=== PATIENT | female | born 1940 | race Caucasian/White ===

== ENCOUNTER → 2016-09-07 | Outpatient (CLI) | payer OTHER | LOC: FIMAGING 15:00 | PROVIDERS: ATTEND Physician Assistant | DX: R10.9 Unspecified abdominal pain (principal); R14.0 Abdominal distension (gaseous) ==

== ENCOUNTER → 2016-10-31 | Outpatient (CLI) | payer OTHER | LOC: FIMAGING 18:42 | PROVIDERS: ATTEND Physician Assistant Surgical | DX: M43.12 Spondylolisthesis, cervical region (principal); M48.02 Spinal stenosis, cervical region; M40.202 Unspecified kyphosis, cervical region; Z98.1 Arthrodesis status ==

== ENCOUNTER 2016-12-19 11:02 | Inpatient (IN) | payer OTHER ==
[2016-12-19] MEDS ORDERED: BUPIVACAINE/EPI 0.25% 30 ML SDV ONE (12:00)
[2016-12-19] MEDS ORDERED: THROMBIN (BOVINE) 20,000 UNIT VIAL TP ONE ×2 (12:00→12:06)
[2016-12-19] MEDS ORDERED: BUPIVACAINE 0.25% 30 ML SDV ONE (12:00)
[2016-12-19] MEDS ORDERED: BACITRACIN 50,000 UNITS/10 ML SYR IRR ONE (12:01)
[2016-12-19] MEDS ORDERED: LIDOCAINE 1% 2 ML INJ ONE (12:27)
[2016-12-19] MEDS ORDERED: ceFAZolin 2 GM/DEXTROSE 100 ML IV ONE (12:30)
[2016-12-19] MEDS ORDERED: CHLORHEXIDINE GLUC HIBICLENS 118 ML BTL TP ONE (12:30)
[2016-12-19 13:29] LABS: INR 0.98 (0.83-1.16); PROTIME(PATIENT) 12.9 SEC (12.0-15.0)
[2016-12-19] MEDS ORDERED: PROPOFOL/EMULSION 500 MG/50 ML BOTTLE IV ONE ×3 (13:36→16:52)
[2016-12-19] MEDS ORDERED: fentaNYL 100 MCG/2 ML INJ ONE (13:36)
[2016-12-19] MEDS ORDERED: REMIFENTANIL HCL 1 MG VIAL ONE (13:36)
[2016-12-19] MEDS ORDERED: ROCURONIUM 50 MG/5 ML VIAL ONE (13:39)
[2016-12-19] MEDS ORDERED: DEXAMETHASONE 4 MG/ML VIAL ONE (13:39)
[2016-12-19] MEDS ORDERED: LIDOCAINE 2% 5 ML SDV ONE (13:39)
[2016-12-19] MEDS ORDERED: VANCOMYCIN 500 MG in D5W 100 ML IV ONE (14:00)
[2016-12-19] MEDS ORDERED: HYDROmorphONE/DILAUDID 2 MG/ML INJ ONE (16:14)
[2016-12-19] MEDS ORDERED: FAMOTIDINE 20 MG TAB PO PRN (17:13)
[2016-12-19] MEDS ORDERED: HYDROmorphONE/DILAUDID 1 MG/ML SYR IVP PRN (17:14)
[2016-12-19] MEDS ORDERED: ACETAMINOPHEN 325 MG TAB PO PRN (17:14)
[2016-12-19] MEDS ORDERED: ONDANSETRON DISINTEGRATING 4 MG TAB PO PRN (17:14)
[2016-12-19] MEDS ORDERED: LACTULOSE 20 GM/30 ML UDCUP PO PRN (17:14)
[2016-12-19] MEDS ORDERED: diphenhydrAMINE 25 MG CAP PO PRN (17:14)
[2016-12-19] MEDS ORDERED: ONDANSETRON 4 MG/2 ML VIAL IVP PRN (17:14)
[2016-12-19] MEDS ORDERED: PROMETHAZINE HCL 25 MG/ML INJ IVP PRN (17:14)
[2016-12-19] MEDS ORDERED: POLYETHYLENE GLYCOL 3350 17 GM PKT PO PRN (17:14)
[2016-12-19] MEDS ORDERED: MAG HYDROX/AL HYDROX/SIMETH 30 ML UDCUP PO PRN (17:14)
[2016-12-19] MEDS ORDERED: MAGNESIUM HYDROXIDE 30 ML UDCUP PO PRN (17:14)
[2016-12-19] MEDS ORDERED: BISACODYL 10 MG SUPP PR PRN (17:14)
[2016-12-19] MEDS ORDERED: VANCOMYCIN 1.5 GM in D5W 250 ML IV SCH (17:30)
[2016-12-19] MEDS ORDERED: ESMOLOL HCL 100 MG/10 ML VIAL IV ONE (17:41)
[2016-12-19] MEDS ORDERED: ONDANSETRON 4 MG/2 ML VIAL ONE (17:47)
--- NOTE | 2016-12-19 18:54 | POSTOPPROG ---
Post Op Note Date of Operation: 12/19/16 Surgeon: Ayad Zimmerman Meter Maintenance Person: Lex Dale PA-C Anesthesiologist: Silver Anesthesia: GET(General Endotracheal) Pre-op Diagnosis: cervical stenosis, kyphosis Post-op Diagnosis: same Indication: kyphosis Procedure: C0-T3 posterior fusion with C3 laminectomy Findings: Please see Dr. 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
[2016-12-19] MEDS: HYDROCODONE/APAP 10/325 TAB PO PRN (20:31)
[2016-12-19] MEDS: NS W/ 20 KCl/L 1,000 ML IV SCH (20:32)
[2016-12-19] MEDS: SENNOSIDES/DOCUSATE SODIUM TAB PO SCH (20:48)
[2016-12-19] MEDS: METHOCARBAMOL 750 MG TAB PO PRN (21:32)
[2016-12-19] MEDS: VERAPAMIL ER 120 MG TAB PO SCH (21:32)
[2016-12-19] MEDS: FUROSEMIDE 20 MG TAB PO SCH (21:32)
[2016-12-20] MEDS ORDERED: VANCOMYCIN 750 MG in D5W 150 ML IV ONE (02:00)
[2016-12-20] MEDS: METHOCARBAMOL 750 MG TAB PO PRN ×2 (03:38→19:21)
[2016-12-20] MEDS: HYDROCODONE/APAP 10/325 TAB PO PRN ×5 (03:39→21:35)
[2016-12-20 04:56] LABS: % IMMATURE GRANULYOCYTES 0.4 % (0.0-1.1); ABSOLUTE IMMATURE GRANULOCYTES 0.05 10^3/uL (0.00-0.10); ADD DIFF? NO; ADD MORPH? NO; ADD SCAN? NO; ATYPICAL LYMPHOCYTE FLAG 0 (0-99); FRAGMENT RBC FLAG 0 (0-99); HEMATOCRIT 41.5 % (38.0-47.0); HEMOGLOBIN 13.1 g/dL (12.6-16.3); LEFT SHIFT FLG 0 (0-99); LIPEMIA HEMOLYSIS FLAG 80 (0-99); MEAN CELL HEMOGLOBIN CONCENTR. 31.6 g/dL (32.4-36.7); MEAN CELL VOLUME 95.2 fL (81.5-99.8); MEAN PLATELET VOLUME 10.2 fL (8.7-11.7); PLATELET CLUMPS FLAG 0 (0-99); PLATELET COUNT 157 10^3/uL (150-400); RED BLOOD CELL COUNT 4.36 10^6/uL (4.18-5.33); RED CELL DISTRIBUTION WIDTH 13.7 % (11.5-15.2)
[2016-12-20 05:05] LABS: ANION GAP 5 mEq/L (8-16); CALCIUM 8.5 mg/dL (8.5-10.4); CARBON DIOXIDE 25 mEq/l (22-31); CHLORIDE 107 mEq/L (97-110); CREATININE 0.7 mg/dL (0.6-1.0); GLOMERULAR FILTRATION RATE > 60; GLUCOSE 176 mg/dL (70-100); POTASSIUM 3.6 mEq/L (3.5-5.2); SODIUM 137 mEq/L (134-144)
--- NOTE | 2016-12-20 05:25 | GOP ---
[f rep st] OPERATIVE REPORT DATE OF OPERATION: 12/19/2016 SURGEON: Ayad Zimmerman MD DIRECTOR MACHINE: Chico Stevens MD. SECOND ASSIST: MARLO Adan. COMPLICATIONS: A small dural tear was achieved in the midline at the C4/5 level and was repaired primarily. ANESTHESIA: General. PREOPERATIVE DIAGNOSIS: 1. 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 2. History of prior fusion, C4-C5-C6 and prior laminectomy. 3. Severe spinal stenosis, C3-C4, with progressive myelopathy and neuropathy. POSTOPERATIVE DIAGNOSIS: 1. 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 2. History of prior fusion, C4-C5-C6. 3. Severe spinal stenosis, C3-C4, with progressive myelopathy and neuropathy. PROCEDURE PERFORMED: 1. Posterior arthrodesis with approach to the occiput, C1, C2, C3, C4, C5, C6, C7, T1, T2, T3. 2. Posterolateral fusion with bilateral screw placement into the bilateral occipital condyles with 20 mm bilateral condyle screws, 22 mm left C2 pedicle screw, and right-sided 26 mm C2 translaminar screw. 3. Bilateral C7, T1, T2, T3 pedicle screw placement from the [employer] system. 4. Posterolateral fusion, bilaterally, between the occiput and T3, with morselized autograft and allograft. 5. Exploration of prior cervical hardware, C4-C5-C6, with bilateral nancy removal. 6. Use of intraoperative 3D Stealth navigation. 7. Use of intraoperative fluoroscopy, less than 1 hour of physician time. 8. Use neuromonitoring. FINDINGS: per imaging ESTIMATED BLOOD LOSS: 40 mL. INDICATIONS: The patient is a 76-year-old woman, who has undergone a prior anterior and posterior cervical fusion and decompression several years ago. She presented to my office with progressive neck pain, and had evidence of myelopathy and radiculopathy with evidence of spinal stenosis at C3-C4, as well as progressive chin on chest deformity. After discussion of the risks, benefits , and treatment alternatives, we decided to proceed forth with surgical intervention, as described above. The original plan was to proceed forth with a pedicle subtraction osteotomy with wedge osteotomy at C7; however, the patient did not have a fixed deformity when she went to sleep, and we were actually able to place her in a more neutral position. Given her age and length of surgery, I opted not to complete a wedge osteotomy. Also, the original plan was for placement of an occipital plate; however, the patient's occiput bone thickness laterally was only 1-2 mm thick and therefore, I opted to place bilateral condylar screws instead for greater stability. She presents now for this surgical intervention. DESCRIPTION OF PROCEDURE: Patient was brought to the operating theater and underwent general endotracheal anesthesia without complication. She had Venodynes, JOYCELYN hose, and the appropriate lines placed by Anesthesia. The patient's head was then placed in an almost neutral position when she was asleep , and her head was then placed in a Robert head device. Using spinal precautions, she was flipped prone onto the standard table, at which point, she was affixed to the table in a neutral position. The prior occipital-cervical incision was identified and prepped and draped in the usual sterile surgical fashion. A time-out was completed per protocol, and the patient received antibiotics within 1 hour of incision. The incision in the midline was infiltrated with Marcaine with epinephrine. The incision was taken down with the scalpel blade. Used the monopolar, the incision was then taken down the midline, exposing the occiput, as well as the bilateral occipital condyles, the ring of C1, the ring of C2, ring of C3, and during the exposure in the midline, we got a small dural tear at the C4 level which was closed primarily with 4-0 Nurolon sutures immediately. We then continued out with the dissection to the lateral masses at the prior screws on the right side at C4-C5-C6 and the left-sided of C5-C6, and continued down to C7 , T1, T2, T3. Deep retractors were placed to maintain our exposure. At this point, we attached the 3D Stealth navigation clamp and completed a 3D Stealth navigation spin. Using 3D Stealth navigation, we placed the pilot plant supervisor holes for the bilateral pedicle screws into C7, T1, T2, and T3. All holes were manually palpated with no evidence of any cortical breaches. We then tapped and placed 28 mm screw on the left at C7, 22 mm screw on the right at C7, a 30 mm screw on the left at T1, a 26 mm screw on the right at T1, a 34 mm screw on the left at T2, a 30 mm screw on the right at T2, a 34 mm screw on the left at T3, and a 34 mm screw on the right at T3. We then used the navigation system to drill, tap, and place a left-sided C2 pars-pedicle 22m mm screw. I was not able to place a right-sided C2 pars-pedicle screw because of the vertebral artery and therefore placed a right to left 26 mm C2 translaminar screw. I could now place the C1 screw safely and planned for placement of bilateral condylar screws because the patient's occiput was so thin. We dissected out the condyles bilaterally by using the navigation system. We drilled and tapped, and placed 28 mm screws bilaterally into the occipital condyles. Another 3D Stealth navigation spin demonstrated that the right condylar screw was 2 mm slightly towards the hypoglossal canal, and we therefore backed it out approximately 2 mm. After we placed all of our screws, we completed a dissection of the posterior ring of C3 using the forward-angle curette, at which point, we removed the posterior ring of C3 and completed C3 laminectomy with the Kerrison punches. At this point, we decorticated the bone bilaterally between the occiput, C1, C2 , C3, C4, C5, C6, C7, T1, T2, T3. Two rods were placed into the heads of the screws between the occipital condyles and T3, and secured down with cap screws, which were then tightened per the hunting and fishing guide's setting. We placed morselized autograft and allograft bilaterally between the occipital condyles and T3 for the posterolateral fusion. A drain was left in the subfascial space and the wound then closed in multiple layers using Vicryl sutures in the deep layers and a running nylon stitch for the skin. The patient's wounds were dressed sterilely. At this point, the patient was flipped supine onto the transfer cart, and was still asleep at the time of this dictation. There were no complications and no noted changes on neuromonitoring throughout the procedure. /[id number]/MODL MTDD
--- NOTE | 2016-12-20 07:25 | NEUSURGPN ---
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 Rested thru the night. No cp/sob/abd or gu complaints. No f/c/n/v/d. No other concerns per pt Objective: AAOx3/NAD VSS Tongue with deviation to the right No droop MAEx4 Motor 5/5 BUE/BLE +LT TIARA x1-to be removed today Neuro Check Frequency: per routine Urinary Catheter in Place: No Catheter Insertion Date: 12/19/16 - Physician Discussed Patient with : Erasmo Patient Seen by : Erasmo Neurosurgery Physical Exam - Vitals, I&O, Labs I and O 12/19/16 12/20/16 12/21/16 05:59 05:59 05:59 Intake Total 2725 Output Total 1040 Balance 1685 Intake: Oral (ml) 400 IV Intake (ml) 1350 IV Infused (ml) 975 NS W/ 20 KCl/L 1,000 ml @ 825 75 mls/hr IV CONT RAJI Rx #:[id number] Vancomycin 750 mg In D5w 150 150 ml @ 150 mls/hr IV ONCE ONE Rx#:[id number] Output: Urine (ml) 900 Bedside Commode 600 Catheter 300 Estimated Blood Loss (ml) 100 Wound Drainage (ml) 40 Posterior Neck Kiko 40 Landis Vital Signs Temp Pulse Resp BP Pulse Ox 37.5 C 90 19 174/93 H 99 12/20/16 03:43 12/20/16 03:43 12/20/16 03:43 12/20/16 03:43 12/20/16 03:43 Laboratory Results 12/20/16 04:10 12/20/16 04:10 ICD10 Worksheet Patient Problems: Problems Problem Status Onset Abdominal pain Acute Hemarthrosis involving knee joint Acute Hematoma Acute Hernia Acute Localized osteoarthritis of right knee Acute Parathyroid adenoma Acute Primary osteoarthritis of left knee Acute Supratherapeutic INR Acute
[2016-12-20] MEDS: VERAPAMIL ER 120 MG TAB PO SCH ×2 (08:09→19:21)
[2016-12-20] MEDS: FUROSEMIDE 20 MG TAB PO SCH ×2 (08:09→19:24)
[2016-12-20] MEDS: POTASSIUM CL 10 MEQ TAB PO SCH (08:10)
[2016-12-20] MEDS: CHOLECALCIFEROL VIT D3 1,000 UNITS TAB PO SCH (08:11)
[2016-12-20] MEDS: SENNOSIDES/DOCUSATE SODIUM TAB PO SCH ×2 (08:17→19:24)
[2016-12-20] MEDS ORDERED: PRAVASTATIN SODIUM 10 MG TAB PO SCH (09:00)
[2016-12-20] MEDS: CHOLESTYRAMINE/SUCROSE 4 GM PKT PO SCH (13:16)
[2016-12-20] MEDS: PRAVASTATIN SODIUM 10 MG TAB PO SCH (18:19)
[2016-12-20] MEDS: METOPROLOL TARTRATE 25 MG TAB PO PRN (21:33)
[2016-12-21] MEDS: HYDROCODONE/APAP 10/325 TAB PO PRN ×5 (00:01→23:21)
[2016-12-21] MEDS: METHOCARBAMOL 750 MG TAB PO PRN ×3 (05:34→23:21)
--- NOTE | 2016-12-21 08:18 | NEUSURGPN ---
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 Has been up and walking. Objective: AAOx3 NAD VSS MAEx4 Motor 5/5 BUE/BLE SHIP'S ELECTRONIC WARFARE OFFICER brace on Incision dressed cdi +LT Urinary Catheter in Place: No Catheter Insertion Date: 12/19/16 - Physician Discussed Patient with Dr.: Zimmerman Neurosurgery Physical Exam - Vitals, I&O, Labs I and O 12/20/16 12/21/16 12/22/16 05:59 05:59 05:59 Intake Total 2725 1000 Output Total 1040 1020 Balance 1685 -20 Intake: Oral (ml) 400 550 IV Intake (ml) 1350 IV Infused (ml) 975 450 NS W/ 20 KCl/L 1,000 ml @ 825 450 75 mls/hr IV CONT RAJI Rx #:[id number] Vancomycin 750 mg In D5w 150 150 ml @ 150 mls/hr IV ONCE ONE Rx#:[id number] Output: Urine (ml) 900 1000 Bedside Commode 600 1000 Catheter 300 Estimated Blood Loss (ml) 100 Wound Drainage (ml) 40 20 Posterior Neck Kiko 40 20 Landis Vital Signs Temp Pulse Resp BP Pulse Ox 36.3 C 74 16 182/90 H 99 12/21/16 08:00 12/21/16 08:00 12/21/16 08:00 12/21/16 08:00 12/21/16 08:00 Laboratory Results 12/20/16 04:10 12/20/16 04:10 ICD10 Worksheet Patient Problems: Problems Problem Status Onset Abdominal pain Acute Hemarthrosis involving knee joint Acute Hematoma Acute Hernia Acute Localized osteoarthritis of right knee Acute Parathyroid adenoma Acute Primary osteoarthritis of left knee Acute Supratherapeutic INR Acute
[2016-12-21] MEDS: FUROSEMIDE 20 MG TAB PO SCH ×2 (08:27→19:58)
[2016-12-21] MEDS: CHOLECALCIFEROL VIT D3 1,000 UNITS TAB PO SCH (08:27)
[2016-12-21] MEDS: VERAPAMIL ER 120 MG TAB PO SCH ×2 (08:27→19:58)
[2016-12-21] MEDS: PANTOPRAZOLE SODIUM 40 MG TAB PO SCH (08:28)
[2016-12-21] MEDS: POTASSIUM CL 10 MEQ TAB PO SCH (08:28)
[2016-12-21] MEDS: SENNOSIDES/DOCUSATE SODIUM TAB PO SCH ×2 (08:43→21:09)
[2016-12-21] MEDS: CHOLESTYRAMINE/SUCROSE 4 GM PKT PO SCH (12:46)
[2016-12-21] MEDS: PRAVASTATIN SODIUM 10 MG TAB PO SCH (17:39)
[2016-12-21] MEDS: NS W/ 20 KCl/L 1,000 ML IV SCH (23:50)
[2016-12-22] MEDS: METHOCARBAMOL 750 MG TAB PO PRN ×3 (05:15→19:40)
[2016-12-22] MEDS: HYDROCODONE/APAP 10/325 TAB PO PRN ×3 (05:16→19:39)
[2016-12-22] MEDS: VERAPAMIL ER 120 MG TAB PO SCH ×2 (08:58→19:40)
[2016-12-22] MEDS: POTASSIUM CL 10 MEQ TAB PO SCH (08:59)
[2016-12-22] MEDS: SENNOSIDES/DOCUSATE SODIUM TAB PO SCH ×2 (08:59→19:40)
[2016-12-22] MEDS: FUROSEMIDE 20 MG TAB PO SCH ×2 (08:59→19:41)
[2016-12-22] MEDS: CHOLECALCIFEROL VIT D3 1,000 UNITS TAB PO SCH (08:59)
--- NOTE | 2016-12-22 10:24 | NEUSURGPN ---
Assessment/Plan: Assessment: 76 yo F s/p C0-T3 posterior fusion with C3 laminectomy, dural tear repaired primarily - POD#3 Plan: -PT/OT -PLATE DEVELOPER brace was not fitting well, soft collar placed instead. To be worn at all times. Winn collar for showers. 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 Was able to do more walking yesterday. Objective: AAOx3 NAD VSS MAEx4 Motor 5/5 BUE/BLE Incision dressed cdi +LT Urinary Catheter in Place: No Catheter Insertion Date: 12/19/16 - Physician Discussed Patient with : Erasmo Neurosurgery Physical Exam - Vitals, I&O, Labs I and O 12/21/16 12/22/16 12/23/16 05:59 05:59 05:59 Intake Total 1000 300 Output Total 1020 600 Balance -20 -300 Intake: Oral (ml) 550 300 IV Infused (ml) 450 NS W/ 20 KCl/L 1,000 ml @ 450 75 mls/hr IV CONT RAJI Rx #:[id number] Output: Urine (ml) 1000 600 Bedside Commode 1000 600 Wound Drainage (ml) 20 Posterior Neck Kiko 20 Landis Other: Intake Quantity Yes Sufficient Number of Voids Bedside Commode 1 Vital Signs Temp Pulse Resp BP Pulse Ox 36.6 C 88 16 178/96 H 96 12/22/16 07:53 12/22/16 07:53 12/22/16 07:53 12/22/16 08:08 12/22/16 07:53 Laboratory Results 12/20/16 04:10 12/20/16 04:10 ICD10 Worksheet Patient Problems: Problems Problem Status Onset Abdominal pain Acute Hemarthrosis involving knee joint Acute Hematoma Acute Hernia Acute Localized osteoarthritis of right knee Acute Parathyroid adenoma Acute Primary osteoarthritis of left knee Acute Supratherapeutic INR Acute
[2016-12-22] MEDS: CHOLESTYRAMINE/SUCROSE 4 GM PKT PO SCH (12:19)
[2016-12-22] MEDS: ENOXAPARIN 40 MG/0.4 ML SYR SC SCH (16:33)
[2016-12-22] MEDS: PRAVASTATIN SODIUM 10 MG TAB PO SCH (19:40)
[2016-12-23] MEDS: METHOCARBAMOL 750 MG TAB PO PRN ×4 (00:32→14:08)
[2016-12-23] MEDS: HYDROCODONE/APAP 10/325 TAB PO PRN ×4 (00:33→14:08)
[2016-12-23] MEDS: FUROSEMIDE 20 MG TAB PO SCH (05:35)
[2016-12-23] MEDS: METOPROLOL TARTRATE 25 MG TAB PO PRN (05:38)
[2016-12-23 07:31] VITALS: PULSE 63; TEMP 98.1
[2016-12-23] MEDS: VERAPAMIL ER 120 MG TAB PO SCH (07:44)
[2016-12-23] MEDS: ENOXAPARIN 40 MG/0.4 ML SYR SC SCH (08:47)
[2016-12-23] MEDS: CHOLECALCIFEROL VIT D3 1,000 UNITS TAB PO SCH (08:50)
[2016-12-23] MEDS: PANTOPRAZOLE SODIUM 40 MG TAB PO SCH (08:52)
[2016-12-23] MEDS: SENNOSIDES/DOCUSATE SODIUM TAB PO SCH (08:52)
[2016-12-23] MEDS: POTASSIUM CL 10 MEQ TAB PO SCH (08:54)
[2016-12-23] MEDS ORDERED: hydrALAZINE 20 MG/ML VIAL IVP PRN (09:01)
[2016-12-23] MEDS: CHOLESTYRAMINE/SUCROSE 4 GM PKT PO SCH (12:05)
--- NOTE | 2016-12-23 12:41 | NEUSURGPN ---
Assessment/Plan: Assessment: 76 yo F s/p C0-T3 posterior fusion with C3 laminectomy, dural tear repaired primarily - POD#4 Plan: -Patient with some episodes of HTN in high 180's. Hydralizine ordered prn. May be driven by pain. -PT/OT -RN CASE MGR brace was not fitting well, soft collar placed instead. To be worn at all times. Henderson collar for showers. 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 Will go to [facility]. Subjective: Patient is doing well states that her pain is bad, but tolerable with medications. Has been up with PT, walking well. Tolerating soft collar better. Objective: NAD, VSS- Hypertensive 168/90 BUE 5/5= Soft collar in place BLE 5/5= Sensation intact to lt touch Incision c/d/i-dressed Catheter Insertion Date: 12/19/16 - Physician Discussed Patient with Dr.: Zimmerman Neurosurgery Physical Exam - Vitals, I&O, Labs I and O 12/22/16 12/23/16 12/24/16 05:59 05:59 05:59 Intake Total 300 Output Total 600 Balance -300 Intake: Oral (ml) 300 Output: Urine (ml) 600 Bedside Commode 600 Other: Intake Quantity Yes Yes Sufficient Number of Voids Bedside Commode 1 Toilet 1 Number of Stools Bedside Commode 1 Vital Signs Temp Pulse Resp BP Pulse Ox 36.7 C 63 19 135/70 H 97 12/23/16 07:29 12/23/16 07:29 12/23/16 07:29 12/23/16 11:31 12/23/16 07:29 Laboratory Results 12/20/16 04:10 12/20/16 04:10 ICD10 Worksheet Patient Problems: Problems Problem Status Onset Abdominal pain Acute Hemarthrosis involving knee joint Acute Hematoma Acute Hernia Acute Localized osteoarthritis of right knee Acute Parathyroid adenoma Acute Primary osteoarthritis of left knee Acute Supratherapeutic INR Acute
--- NOTE | 2016-12-23 12:54 | PDIAF ---
- Diagnosis Code Status: Full Code - Medication Management Discharge Medications: Medications to Continue on Transfer Omeprazole [Prilosec 20 mg] 20 mg PO Q2D 09/14/14 [Last Taken 11/10/15] Verapamil ER [Calan SR/ER 120MG (*)] 120 mg PO BID 12/21/14 [Last Taken ] traMADol [Ultram 50 mg (*)] 100 mg PO DAILY PRN 02/14/15 [Last Taken 11/11/15] Furosemide [Lasix 20 MG (*)] 20 mg PO BID@,10/15/15 [Last Taken 11/10/15] Potassium Cl [Klor-Con 10 meq (RX)] 10 meq PO DAILY 10/15/15 [Last Taken ] Pravastatin Sodium [Pravachol] 10 mg PO DAILY 10/15/15 [Last Taken 11/10/15] Cholecalciferol Vit D3 [Vitamin D3 (*)] 5,000 units PO DAILY 06/21/16 [Last Taken Unknown] Cholestyramine (with Sugar) [Cholestyramine Packet] 4 gm PO DAILY@12 06/21/16 [ Last Taken Unknown] Famotidine [Pepcid 20 MG (*)] 20 mg PO HS PRN 11/27/16 [Last Taken Unknown] Acetaminophen [Tylenol 325mg (*)] 325 - 650 mg PO Q4HRS PRN #0 tab 12/23/16 [ Last Taken Unknown] Enoxaparin [Lovenox 40 MG (*)] 40 mg SC DAILY #0 syr 12/23/16 [Last Taken Unknown] HYDROcodone/APAP 10/325 [Fiatt 10/325 (*)] 1 - 2 tab PO Q6HRS PRN #0 tab [Last Taken Unknown] Methocarbamol [Robaxin 750 mg (*)] 750 mg PO QID PRN #0 tab 12/23/16 [Last Taken Unknown] Metoprolol Tartrate [Lopressor 25 mg (*)] 25 mg PO BID PRN #0 tab 12/23/16 [ Last Taken Unknown] Ondansetron Odt [Zofran Odt 4 mg (*)] 4 - 8 mg PO Q6HRS PRN #0 tab 12/23/16 [ Last Taken Unknown] Polyethylene Glycol 3350 [Miralax 17 gm (*)] 17 gm PO DAILY PRN #0 pkt 12/23/16 [Last Taken Unknown] Sennosides/Docusate Sodium [Senokot-S] 1 - 2 tab PO BID #0 tab 12/23/16 [Last Taken Unknown] Discharge Medications: Refer to the Discharge Home Medication list for PRN reason. - Orders Services needed: Registered Nurse, Physical Therapy, Occupational Therapy Diet Recommendation: no restrictions on diet Diet Texture: Regular Texture Diet Wound Care Instructions: Patient is to wear soft collar at all times, can wear Rose collar in shower. May shower, keep showers short, warm soapy water can wash over incision, pat dry with towel. Please do daily dressing changes and check incision. No lifting more than 5-10 pounds. Continue to work with PT/OT Sutures/Tatamy Site: Patient is to wear soft collar at all times, can wear Rose collar in shower. May shower, keep showers short, warm soapy water can wash over incision, pat dry with towel. Please do daily dressing changes and check incision. No lifting more than 5-10 pounds. Continue to work with PT/OT Activity/Weight Bearing Restrictions: Patient is to wear soft collar at all times, can wear Rose collar in shower. May shower, keep showers short, warm soapy water can wash over incision, pat dry with towel. Please do daily dressing changes and check incision. No lifting more than 5-10 pounds. Continue to work with PT/OT Additional: Patient may resume taking Coumadin on postop day #7. Patient may resume ASA on postop day #5 - Follow Up Care Current Providers and Referrals: Grayson Ramsay DO [Primary Care Provider] - Ayad Zimmerman MD [Medical Doctor] - follow up in 2 weeks
[2016-12-23 15:21] VITALS: BP 124/72; RESP 20; O2SAT 96
== END 2016-12-23 15:55 | DRG 457 ==
LOC: F3N 11:27
PROVIDERS: ADMIT Neurological Surgery; ATTEND Neurological Surgery
PROC: 0RG70A0 Fusion of 2 to 7 Thoracic Vertebral Joints with Interbody Fusion Device, Anterior Approach, Anterior Column, Open Approach (ICD-10-PCS; principal; 2016-12-19 13:15)
PROC: 4A1004G Monitoring of Central Nervous Electrical Activity, Intraoperative, Open Approach (ICD-10-PCS; principal; 2016-12-19 13:15)
PROC: 0RG20A0 Fusion of 2 or more Cervical Vertebral Joints with Interbody Fusion Device, Anterior Approach, Anterior Column, Open Approach (ICD-10-PCS; principal; 2016-12-19 13:15)
PROC: 0RG40A0 Fusion of Cervicothoracic Vertebral Joint with Interbody Fusion Device, Anterior Approach, Anterior Column, Open Approach (ICD-10-PCS; principal; 2016-12-19 13:15)
PROC: 8E09XBZ Computer Assisted Procedure of Head and Neck Region (ICD-10-PCS; principal; 2016-12-19 13:15)
PROC: 00Q20ZZ Repair Dura Mater, Open Approach (ICD-10-PCS; principal; 2016-12-19 13:15)
DX: M40.202 Unspecified kyphosis, cervical region (principal); M50.01 Cervical disc disorder with myelopathy, high cervical region; M48.02 Spinal stenosis, cervical region; G97.41 Accidental puncture or laceration of dura during a procedure; Z98.1 Arthrodesis status; I10 Essential (primary) hypertension; I48.91 Unspecified atrial fibrillation; K21.9 Gastro-esophageal reflux disease without esophagitis; Z85.820 Personal history of malignant melanoma of skin; Z96.653 Presence of artificial knee joint, bilateral
CPT/HCPCS: 92526-GN; 92610-GN; 97116-GP; 97162-GP; 97166-GO; 97535-GO; C1713; G8978-GP-CL; G8979-GP-CJ; G8987-GO-CM; G8988-GO-CJ; G8996-GN-CI; G8997-GN-CH; G8998-GN-CH; J0360; J0690; J1100; J1170; J1650; J2405; J2550; J2704; J3010; J3370

== ENCOUNTER 2017-02-12 15:11 | Emergency (ER) | payer OTHER ==
--- NOTE | 2017-02-12 17:51 | EDPHY ---
H & P Stated Complaint: Poss constipation vs blockage;passing gas Time Seen by Provider: 02/12/17 16:59 HPI/ROS: CHIEF COMPLAINT: constipation HISTORY OF PRESENT ILLNESS: 76-year-old female presents emergency department complaining of constipation. Patient had a hernia surgery 16 months ago that caused a bowel obstruction and she had part of her small bowel removed. Since this time the patient has not had normal bowel movements and has intermittent constipation and diarrhea. The patient takes cholestyramine for her diarrhea. She had a cervical fusion 2 months ago and stopped her cholestyramine for 5 days. Patient reports constipation for the last month. She states 10 days ago she had explosive diarrhea and since that time she has had 2 small bowel movements that were firm. Patient is passing gas, she denies abdominal pain, no fevers. She states she is not eating very much. REVIEW OF SYSTEMS: A comprehensive 10 point review of systems is otherwise negative aside from elements mentioned in the history of present illness. Source: Patient Exam Limitations: No limitations - Personal History Current Tetanus Diphtheria and Acellular Pertussis (TDAP): Yes Tetanus Vaccine Date: 2012 - Medical/Surgical History Hx Asthma: No Hx Chronic Respiratory Disease: Yes Hx Diabetes: No Hx Cardiac Disease: Yes Hx Renal Disease: No Hx Cirrhosis: No Hx Alcoholism: No Hx HIV/AIDS: No Hx Splenectomy or Spleen Trauma: No Other PMH: medical: COPD, Atrial fibrillation, anemia, small bowel malformation ; osteoporosis, skin cancer. surgery: neck fusion, bilateral shoulder and b/l total knee replacements, parathyroidectomy, spinal fusion, corneal transplants, hysterectomy; michelle; diaphragmatic hernia repair , Moh's procedure - Social History Smoking Status: Current some day smoker - Physical Exam Exam: Physical Exam Gen: Alert and Oriented, NAD HEENT: PERRL, moist mucous membranes NECK: no meningismus CV: regular rate and regular rhythm PULM: CTAB, no wheezes ABDOMEN: soft, non tender to palpation, BS present Rectal: No stool in rectal vault BACK: No CVA tenderness NEURO: Neurologically grossly intact EXTREMITIES: normal appearing SKIN: no rash or break in skin on exposed skin PSYCH: answers questions appropriately. Constitutional: Initial Vital Signs Temperature (C) 36.9 C 02/12/17 15:35 Heart Rate 78 02/12/17 15:35 Respiratory Rate 18 02/12/17 15:35 Blood Pressure 145/104 H 02/12/17 15:35 O2 Sat (%) 98 02/12/17 15:35 O2 Delivery Mode Room Air Allergies/Adverse Reactions: oxycodone HCl [From OxyContin] Allergy (Intermediate, Verified 02/12/17 15:44) Vomiting cephalexin [Cephalexin] Allergy (Verified 02/12/17 15:44) Rash and fever cephalexin monohydrate [From Keflex] Allergy (Verified 02/12/17 15:44) Rash codeine Allergy (Verified 02/12/17 15:44) passes out, n/v diazepam [From Valium] Allergy (Verified 02/12/17 15:44) GI meperidine HCl [From Demerol] Allergy (Verified 02/12/17 15:44) GI propoxyphene Allergy (Verified 02/12/17 15:44) n/v Home Medications: Medication Instructions Recorded Omeprazole [Prilosec 20 mg] 20 mg PO Q2D 09/14/14 Verapamil ER [[place]an SR/ER 120MG 120 mg PO BID 12/21/14 (*)] traMADol [Ultram 50 mg (*)] 100 mg PO DAILY PRN 02/14/15 Furosemide [Lasix 20 MG (*)] 20 mg PO BID@07,19 10/15/15 Potassium Cl [Klor-Con 10 meq (RX)] 10 meq PO DAILY 10/15/15 Pravastatin Sodium [Pravachol] 10 mg PO DAILY 10/15/15 Cholecalciferol Vit D3 [Vitamin D3 5,000 units PO DAILY 06/21/16 (*)] Cholestyramine (with Sugar) 4 gm PO DAILY@12 06/21/16 [Cholestyramine Packet] Famotidine [Pepcid 20 MG (*)] 20 mg PO HS PRN 11/27/16 Acetaminophen [Tylenol 325mg (*)] 325 - 650 mg PO Q4HRS PRN #0 tab 12/23/16 Enoxaparin [Lovenox 40 MG (*)] 40 mg SC DAILY #0 syr 12/23/16 HYDROcodone/APAP 10/325 [[place] 1 - 2 tab PO Q6HRS PRN #0 tab 12/23/16 10/325 (*)] Methocarbamol [Robaxin 750 mg (*)] 750 mg PO QID PRN #0 tab 12/23/16 Metoprolol Tartrate [Lopressor 25 25 mg PO BID PRN #0 tab 12/23/16 mg (*)] Ondansetron Odt [Zofran Odt 4 mg 4 - 8 mg PO Q6HRS PRN #0 tab 12/23/16 (*)] Polyethylene Glycol 3350 [Miralax 17 gm PO DAILY PRN #0 pkt 12/23/16 17 gm (*)] Sennosides/Docusate Sodium 1 - 2 tab PO BID #0 tab 12/23/16 [Senokot-S] Medical Decision Making - Diagnostics Imaging Results: Imaging Impressions Abdomen X-Ray 02/12/17 17:47 Impression: 1. Constipation. 2. No evidence of small bowel obstruction or pneumoperitoneum. Imaging: I viewed and interpreted images myself ED Course/Re-evaluation: Upright abdomen shows no evidence of bowel obstruction, she has evidence of constipation. Fleets enema has been ordered and given. Patient is also given milk of magnesia. Physical exam and digital exam shows no fecal impaction. Patient was observed for 2 and 0.5 hours after her fleets enema with no bowel movement. She continues with no abdominal pain, abdomen is soft and nontender. She will be discharged home with a bottle of magnesium citrate that I have recommended drinking slowly over the next 24 hours. She agrees to follow up with her primary care doctor. She is given strict return precautions for vomiting, abdominal pain, any new symptoms or concerns. Differential Diagnosis: Diagnosis considered but not limited to constipation, fecal impaction, small- bowel obstruction, irritable bowel syndrome - Data Points Medications Given: Discontinued Medications Magnesium Citrate (Magnesium Citrate) 300 ml PO ONCE ONE Stop: 02/12/17 20:26 Last Admin: 02/12/17 20:40 Dose: 1 btl Magnesium Hydroxide (Milk Of Magnesia) 30 ml PO EDNOW ONE Stop: 02/12/17 18:46 Last Admin: 02/12/17 18:52 Dose: 30 ml Departure - Departure Disposition: Home, Routine, Self-Care Clinical Impression: Constipation Qualifiers: Constipation type: unspecified constipation type Qualified Code(s): K59.00 - Constipation, unspecified Condition: Good Instructions: Magnesium Citrate (By mouth), Constipation (ED), High Fiber Diet (ED) Additional Instructions: Drink the Magnesium citrate over the next day. Drink plenty of fluids. Take MiraLax daily. Follow-up with your primary care doctor for continued symptoms. Return to the emergency department for abdominal pain, vomiting, fevers, any new symptoms or concerns. Referrals: Grayson Ramsay, [Primary Care Provider] - As per Instructions
[2017-02-12] MEDS ORDERED: MAGNESIUM HYDROXIDE 30 ML UDCUP PO ONE (18:45)
[2017-02-12] MEDS ORDERED: MAGNESIUM CITRATE 300 ML BOTTLE PO ONE (20:25)
[2017-02-12 20:52] VITALS: BP 149/100; PULSE 76; RESP 16; TEMP 98.2; O2SAT 96
== END 2017-02-12 20:52 | disposition home or self-care (01) ==
DX: K59.00 Constipation, unspecified (principal); J44.9 Chronic obstructive pulmonary disease, unspecified; F17.200 Nicotine dependence, unspecified, uncomplicated; Z85.828 Personal history of other malignant neoplasm of skin

== ENCOUNTER 2017-02-24 17:04 | Emergency (ER) | payer OTHER ==
[2017-02-24] MEDS ORDERED: NS 1,000 ML IV ONE (17:23)
--- NOTE | 2017-02-24 17:23 | EDPHY ---
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 She has been doing that glans. She states she has had some diarrhea she noticed today that it was rather dark possibly bloody melena. She thinks it may have been coffee grounds. She did not see any bright red blood. She denies any vomiting blood. Denies significant abdominal pain. Denies feeling ill. Denies weakness chest pain or shortness of breath. She did bring a stool sample here in the emergency room. I did evaluate the stool sample it is greenish dark brown but not black. I will send to the lab for Hemoccult testing. She does tell me she has had normal colonoscopies without any polyps or mass. Past Medical History: Cervical kyphosis, status post cervical fusion in November, AFib on Coumadin Past Surgical History: Cervical fusion Social History: Denies daily use of drugs alcohol tobacco products. Family History: Noncontributory ROS REVIEW OF SYSTEMS: A comprehensive 10 point review of systems is otherwise negative aside from elements mentioned in the history of present illness. Exam Constitutional appears well nontoxic, triage nursing summary reviewed, vital signs reviewed, awake/alert. Eyes normal conjunctivae and sclera, EOMI, PERRLA. HENT normal inspection, atraumatic, moist mucus membranes, no epistaxis, neck supple/ no meningismus, no raccoon eyes. Respiratory clear to auscultation bilaterally, normal breath sounds, no respiratory distress, no wheezing. Cardiovascular rate normal, regular rhythm, no murmur, no edema, distal pulses normal. Gastrointestinal soft, non-tender, no rebound, no guarding, normal bowel sounds, no distension, no pulsatile mass. Genitourinary no CVA tenderness. Musculoskeletal no midline vertebral tenderness, full range of motion, no calf swelling, no tenderness of extremities, no meningismus, good pulses, neurovascularly intact. Skin pink, warm, & dry, no rash, skin atraumatic. Neurologic awake, alert and oriented x 3, AAOx3, moves all 4 extremities equally, motor intact, sensory intact, CN II-XII intact, normal cerebellar, normal vision, normal speech. Psychiatric normal mood/affect. Heme/Lymph/Immune no lymphadenopathy. Differential Diagnosis: Includes but is not limited to in a particular order GI bleed, melenic stools, diarrhea from bowel cleanse, Medical Decision Making: Plan for this patient IV establishment check basic blood work, type and screen just in case there is a GI bleed, send stool for stool study. Specifically hemoccult blood. Re-evaluation: Blood reviewed hemoccult is negative. CBC unremarkable. I will allow the patient to go home. No evidence she is having acute GI bleed. However if she develops blood in her stool vomiting feels ill she understands return to the emergency room. Source: Patient - Personal History Tetanus Vaccine Date: 2012 - Medical/Surgical History Hx Asthma: No Hx Chronic Respiratory Disease: Yes Hx Diabetes: No Hx Cardiac Disease: Yes Hx Renal Disease: No Hx Cirrhosis: No Hx Alcoholism: No Hx HIV/AIDS: No Hx Splenectomy or Spleen Trauma: No Other PMH: medical: COPD, Atrial fibrillation, anemia, small bowel malformation ; osteoporosis, skin cancer. surgery: neck fusion, bilateral shoulder and b/l total knee replacements, parathyroidectomy, spinal fusion, corneal transplants, hysterectomy; michelel; diaphragmatic hernia repair , Moh's procedure - Social History Smoking Status: Current some day smoker Constitutional: Initial Vital Signs Temperature (C) 36.9 C 02/24/17 17:09 Heart Rate 67 02/24/17 17:09 Respiratory Rate 18 02/24/17 17:09 Blood Pressure 149/86 H 02/24/17 17:09 O2 Sat (%) 98 02/24/17 17:09 O2 Delivery Mode Room Air Allergies/Adverse Reactions: oxycodone HCl [From OxyContin] Allergy (Intermediate, Verified 02/24/17 17:08) Vomiting cephalexin [Cephalexin] Allergy (Verified 02/24/17 17:08) Rash and fever cephalexin monohydrate [From Keflex] Allergy (Verified 02/24/17 17:08) Rash codeine Allergy (Verified 02/24/17 17:08) passes out, n/v diazepam [From Valium] Allergy (Verified 02/24/17 17:08) GI meperidine HCl [From Demerol] Allergy (Verified 02/24/17 17:08) GI propoxyphene Allergy (Verified 02/24/17 17:08) n/v Home Medications: Medication Instructions Recorded Omeprazole [Prilosec 20 mg] 20 mg PO Q2D 09/14/14 Verapamil ER [[place] SR/ER 120MG 120 mg PO BID 12/21/14 (*)] traMADol [Ultram 50 mg (*)] 100 mg PO DAILY PRN 02/14/15 Furosemide [Lasix 20 MG (*)] 20 mg PO BID@,10/15/15 Potassium Cl [Klor-Con 10 meq (RX)] 10 meq PO DAILY 10/15/15 Pravastatin Sodium [Pravachol] 10 mg PO DAILY 10/15/15 Cholecalciferol Vit D3 [Vitamin D3 5,000 units PO DAILY 06/21/16 (*)] Cholestyramine (with Sugar) 4 gm PO DAILY@12 06/21/16 [Cholestyramine Packet] Famotidine [Pepcid 20 MG (*)] 20 mg PO HS PRN 11/27/16 Acetaminophen [Tylenol 325mg (*)] 325 - 650 mg PO Q4HRS PRN #0 tab 12/23/16 Enoxaparin [Lovenox 40 MG (*)] 40 mg SC DAILY #0 syr 12/23/16 HYDROcodone/APAP 10/325 [[place] 1 - 2 tab PO Q6HRS PRN #0 tab 12/23/16 10/325 (*)] Methocarbamol [Robaxin 750 mg (*)] 750 mg PO QID PRN #0 tab 12/23/16 Metoprolol Tartrate [Lopressor 25 25 mg PO BID PRN #0 tab 12/23/16 mg (*)] Ondansetron Odt [Zofran Odt 4 mg 4 - 8 mg PO Q6HRS PRN #0 tab 12/23/16 (*)] Polyethylene Glycol 3350 [Miralax 17 gm PO DAILY PRN #0 pkt 12/23/16 17 gm (*)] Sennosides/Docusate Sodium 1 - 2 tab PO BID #0 tab 12/23/16 [Senokot-S] Medical Decision Making - Data Points Laboratory Results: Laboratory Results 02/24/17 17:55 02/24/17 17:55 Medications Given: Discontinued Medications Sodium Chloride (Ns) 1,000 mls @ 0 mls/hr IV EDNOW ONE; Wide Open PRN Reason: Protocol Stop: 02/24/17 17:24 Last Admin: 02/24/17 18:00 Dose: 1,000 mls Departure - Departure Disposition: Home, Routine, Self-Care Clinical Impression: Diarrhea Qualifiers: Diarrhea type: unspecified type Qualified Code(s): R19.7 - Diarrhea, unspecified Condition: Good Instructions: Acute Diarrhea (ED) Additional Instructions: 1. Return to the emergency room if you have any worsening symptoms, questions, or concerns. Referrals: Grayson Ramsay, [Primary Care Provider] - As per Instructions
[2017-02-24 18:13] LABS: % IMMATURE GRANULYOCYTES 0.2 % (0.0-1.1); ABSOLUTE IMMATURE GRANULOCYTES 0.01 10^3/uL (0.00-0.10); ADD DIFF? NO; ADD MORPH? NO; ADD SCAN? NO; ATYPICAL LYMPHOCYTE FLAG 0 (0-99); FRAGMENT RBC FLAG 0 (0-99); HEMATOCRIT 46.6 % (38.0-47.0); HEMOGLOBIN 15.1 g/dL (12.6-16.3); LEFT SHIFT FLG 0 (0-99); LIPEMIA HEMOLYSIS FLAG 80 (0-99); MEAN CELL HEMOGLOBIN 30.8 pg (27.9-34.1); MEAN CELL HEMOGLOBIN CONCENTR. 32.4 g/dL (32.4-36.7); MEAN CELL VOLUME 95.1 fL (81.5-99.8); MEAN PLATELET VOLUME 10.4 fL (8.7-11.7); PLATELET CLUMPS FLAG 80 (0-99); PLATELET COUNT 217 10^3/uL (150-400); RED CELL DISTRIBUTION WIDTH 13.4 % (11.5-15.2)
[2017-02-24 18:23] LABS: INR 1.88 (0.83-1.16); PROTIME(PATIENT) 21.7 SEC (12.0-15.0)
[2017-02-24 18:24] LABS: APTT 28.4 SEC (23.0-38.0)
[2017-02-24 18:34] LABS: ALANINE AMINOTRANSFERASE 105 IU/L (9-52); ALBUMIN 4.1 g/dL (3.5-5.0); ALKALINE PHOSPHATASE 117 IU/L (38-126); ANION GAP 11 mEq/L (8-16); ASPARTATE AMINOTRANSFERASE 64 IU/L (14-46); BILIRUBIN,TOTAL 0.6 mg/dL (0.1-1.4); BILIRUBIN-CONJUGATED 0.3 mg/dL (0.0-0.5); BILIRUBIN-UNCONJUGATED 0.3 mg/dL (0.0-1.1); CALCIUM 9.7 mg/dL (8.5-10.4); CARBON DIOXIDE 30 mEq/l (22-31); CHLORIDE 97 mEq/L (97-110); CREATININE 0.8 mg/dL (0.6-1.0); GLOMERULAR FILTRATION RATE > 60; GLUCOSE 83 mg/dL (70-100); POTASSIUM 3.2 mEq/L (3.5-5.2); SODIUM 138 mEq/L (134-144); TOTAL PROTEIN 6.4 g/dL (6.3-8.2)
[2017-02-24 18:43] LABS: COLOR PALE YELLOW; LEUKOCYTE ESTERASE,URINE NEGATIVE (NEGATIVE); NITRITE,URINE NEGATIVE (NEGATIVE)
[2017-02-24 18:46] LABS: BACTERIA TRACE /hpf (NONE SEEN)
[2017-02-24 18:59] VITALS: BP 178/81; PULSE 65; RESP 16; TEMP 97.2; O2SAT 99
== END 2017-02-24 18:59 | disposition home or self-care (01) ==
DX: R19.7 Diarrhea, unspecified (principal); E86.9 Volume depletion, unspecified; J44.9 Chronic obstructive pulmonary disease, unspecified; F17.200 Nicotine dependence, unspecified, uncomplicated

== ENCOUNTER → 2017-03-19 | Outpatient (CLI) | payer OTHER | LOC: FLAB 12:08 | PROVIDERS: ATTEND Physician Assistant | DX: Z09 Encounter for follow-up examination after completed treatment for conditions other than malignant neoplasm (principal); Z98.1 Arthrodesis status; S13.130A Subluxation of C2/C3 cervical vertebrae, initial encounter; S13.140A Subluxation of C3/C4 cervical vertebrae, initial encounter ==

== ENCOUNTER → 2017-05-11 | Outpatient (CLI) | payer OTHER | LOC: FLAB 14:32 | PROVIDERS: ATTEND Physician Assistant | DX: Z98.1 Arthrodesis status (principal); M43.12 Spondylolisthesis, cervical region ==

== ENCOUNTER → 2017-07-02 | Outpatient (CLI) | payer OTHER | LOC: FIMAGING 14:01 | PROVIDERS: ATTEND Internal Medicine | DX: Z12.31 Encounter for screening mammogram for malignant neoplasm of breast (principal); Z13.820 Encounter for screening for osteoporosis; M81.0 Age-related osteoporosis without current pathological fracture | CPT/HCPCS: G0202 ==

== ENCOUNTER 2017-07-06 14:25 | Emergency (ER) | payer OTHER ==
[2017-07-06 14:34] VITALS: RESP 16
--- NOTE | 2017-07-06 14:42 | EDPHY ---
H & P Time Seen by Provider: 07/06/17 14:34 HPI/ROS: CHIEF COMPLAINT: Left leg pain HISTORY OF PRESENT ILLNESS: Patient is on Coumadin for atrial fibrillation and had her INR checked today which she says with 2.0. She has been having pain in her left leg since Sunday of this week with a little bit of swelling. Worse with palpation but she is still able to walk on it. And does not have association with chest pain or shortness of breath. No skin rash or fever or chills or laceration. No weakness or numbness in the left foot. Symptoms mild, no radiation. REVIEW OF SYSTEMS: Eye: no change in vision ENT: no sore throat Cardiac: no chest pain or syncope Pulmonary: no cough or SOB Abdomen: no vomiting, diarrhea, abdominal pain Musculoskeletal: Some neck pain after recent cervical fusion, leg as above. Skin: no rash Neuro: no headache Constitutional: no fever : no urinary symptoms A comprehensive 10 point review of systems is otherwise negative aside from elements mentioned in the history of present illness. PAST MEDICAL HISTORY: Includes recent cervical fusion, atrial fibrillation on Coumadin, COPD, anemia. Skin cancer, bilateral total knee replacements, parathyroidectomy. Hysterectomy, cholecystectomy. Social history: Currently not smoking. General Appearance: Alert and conversant, cooperative. Eyes: No scleral icterus. ENT, Mouth: Normal mucous membranes. Respiratory: Normal respiratory effort, breath sounds equal, lungs are clear to auscultation. Cardiovascular: Regular rate and rhythm. Gastrointestinal: Abdomen is soft and non tender. Neurological: Alert and oriented x3. Normally conversant. Face symmetric, normal movement and sensation in all extremities. Skin: Warm and dry, no rashes. She does not have redness or lymphangitis or blisters on the left calf. No zoster there. Musculoskeletal: Patient has some tenderness in her left calf. Compartments are soft. No bony tenderness in the lower extremity. Normal range of motion of left knee and ankle. Normal pulse in the left foot and normal sensation to light touch in the left foot. Psychiatric: Not agitated. Emergency Department course/MDM: Differential includes but not limited to muscular, inflammatory, Vásquez cyst, DVT , hematoma. Ultrasound ordered. 1618: Ultrasound report reviewed. Precautions discussed with the patient. At this point with being 2.2 cm, I think it is more reasonable to just keep an eye on it and not dramatically change her warfarin dosing. Results discussed and she has compression stockings and Alexi wrap at home. Smoking Status: Former smoker Constitutional: Initial Vital Signs Temperature (C) 37.0 C 07/06/17 14:31 Heart Rate 73 07/06/17 14:31 Respiratory Rate 16 07/06/17 14:31 Blood Pressure 135/80 H 07/06/17 14:31 O2 Sat (%) 96 07/06/17 14:31 O2 Delivery Mode Room Air Allergies/Adverse Reactions: oxycodone HCl [From OxyContin] Allergy (Intermediate, Verified 07/06/17 14:29) Vomiting cephalexin [Cephalexin] Allergy (Verified 07/06/17 14:29) Rash and fever cephalexin monohydrate [From Keflex] Allergy (Verified 07/06/17 14:29) Rash codeine Allergy (Verified 07/06/17 14:29) passes out, n/v diazepam [From Valium] Allergy (Verified 07/06/17 14:29) GI meperidine HCl [From Demerol] Allergy (Verified 07/06/17 14:29) GI propoxyphene Allergy (Verified 07/06/17 14:29) n/v Home Medications: Medication Instructions Recorded Omeprazole [Prilosec 20 mg] 20 mg PO Q2D 09/14/14 Verapamil ER [[place] SR/ER 120MG 120 mg PO BID 12/21/14 (*)] traMADol [Ultram 50 mg (*)] 100 mg PO DAILY PRN 02/14/15 Furosemide [Lasix 20 MG (*)] 20 mg PO BID@07,19 10/15/15 Potassium Cl [Klor-Con 10 meq (RX)] 10 meq PO DAILY 10/15/15 Pravastatin Sodium [Pravachol] 10 mg PO DAILY 10/15/15 Cholecalciferol Vit D3 [Vitamin D3 5,000 units PO DAILY 06/21/16 (*)] Cholestyramine (with Sugar) 4 gm PO DAILY@12 06/21/16 [Cholestyramine Packet] Famotidine [Pepcid 20 MG (*)] 20 mg PO HS PRN 11/27/16 HYDROcodone/APAP 10/325 [[place] 1 - 2 tab PO Q6HRS PRN #0 tab 12/23/16 10/325 (*)] Metoprolol Tartrate [Lopressor 25 25 mg PO BID PRN #0 tab 12/23/16 mg (*)] Ondansetron Odt [Zofran Odt 4 mg 4 - 8 mg PO Q6HRS PRN #0 tab 12/23/16 (*)] Polyethylene Glycol 3350 [Miralax 17 gm PO DAILY PRN #0 pkt 12/23/16 17 gm (*)] Medical Decision Making - Diagnostics Imaging Results: Imaging Impressions Extremity Venous Study 07/06/17 14:40 Impression: 1. There is no sonographic evidence of deep or superficial vein thrombosis in the left lower extremity. 2. There is a 2.2 cm subcutaneous calf hematoma. Findings will be conveyed to RADHA DEL ANGEL MD at 16:14, on 07/06/2017. Departure - Departure Disposition: Home, Routine, Self-Care Clinical Impression: Left calf hematoma Condition: Good Instructions: Hematoma (ED) Additional Instructions: Continue medications as prescribed. Follow-up with your physician on Sunday for recheck. Compression stockings or Alexi wrap as discussed. Referrals: Grayson Ramsay, [Primary Care Provider] - As per Instructions
[2017-07-06 16:51] VITALS: BP 130/74; PULSE 71; TEMP 97.9; O2SAT 95
== END 2017-07-06 16:51 | disposition home or self-care (01) ==
DX: M79.81 Nontraumatic hematoma of soft tissue (principal); J44.9 Chronic obstructive pulmonary disease, unspecified; Z85.828 Personal history of other malignant neoplasm of skin; Z87.891 Personal history of nicotine dependence

== ENCOUNTER 2017-08-24 15:46 | Emergency (ER) | payer OTHER ==
[2017-08-24 15:54] VITALS: TEMP 98.1
--- NOTE | 2017-08-24 16:05 | CPEKG ---
Heart Rate: 62 RR Interval: 968 P-R Interval: 176 QRSD Interval: 84 QT Interval: 412 QTC Interval: 419 P [place]: 64 QRS [place]: -43 T Wave [place]: 9 EKG Severity - ABNORMAL ECG - EKG Impression: SINUS RHYTHM EKG Impression: LEFT ANTERIOR FASCICULAR BLOCK EKG Impression: BORDERLINE R WAVE PROGRESSION, ANTERIOR LEADS Electronically Signed By: Darby Gordon 24-Aug-2017 21:41:49
[2017-08-24 16:19] LABS: PLATELET COUNT 219 10^3/uL (150-400)
--- NOTE | 2017-08-24 16:19 | EDPHY ---
H & P Stated Complaint: chest tightness, dizzy Time Seen by Provider: 08/24/17 16:02 HPI/ROS: CHIEF COMPLAINT: Cough, chest tightness HISTORY OF PRESENT ILLNESS: The patient is a 77 y/o female with COPD, CHF and Afib arriving with her friend complaining of cough for the last 10 days now associated with chest tightness. She initially had a cough and sore throat and possible intermittent fever. The cough has since lessened, but she feels somewhat short of breath and "raspy like I can't get much air out to talk right. " The dyspnea is present even while at rest, but is worse with exertion. For the past few days she has had constant central chest tightness and "scratchiness " that is aggravated by coughing and palpation. She came into the ED today because "it's been going on for so long and I feel weak." She reports she is eating and drinking normally. She received a flu vaccination this season. REVIEW OF SYSTEMS: Constitutional: see HPI Eyes: No visual changes ENT: see HPI Respiratory: see HPI Cardiac: see HPI Gastrointestinal: No nausea, no vomiting, no abdominal pain Genitourinary: no dysuria Musculoskeletal: Baseline mild leg swelling Skin: No rash Neurological: No headache, no numbness, +weakness Psychiatric: No depression - Personal History Current Tetanus/Diphtheria Vaccine: Unsure Current Tetanus Diphtheria and Acellular Pertussis (TDAP): Unsure Tetanus Vaccine Date: 2012 - Medical/Surgical History PMH: PMH includes: 1. CHF - verapamil, Lasix 2. COPD 3. Atrial fibrillation 4. Anemia 5. Small bowel malformation 6. Osteoporosis 7. Skin cancer PSH includes: 1. Cervical spinal fusion 2. Bilateral shoulder replacements 3. Bilateral total knee replacements 4. Parathyroidectomy 5. Corneal transplants 6. Hysterectomy 7. Cholecystectomy 8. Diaphragmatic hernia repair Hx Asthma: No Hx Chronic Respiratory Disease: Yes Hx Diabetes: No Hx Cardiac Disease: Yes Hx Renal Disease: No Hx Cirrhosis: No Hx Alcoholism: No Hx HIV/AIDS: No Hx Splenectomy or Spleen Trauma: No Other PMH: medical: COPD, Atrial fibrillation, anemia, small bowel malformation ; osteoporosis, skin cancer. surgery: neck fusion, bilateral shoulder and b/l total knee replacements, parathyroidectomy, spinal fusion, corneal transplants, hysterectomy; michelle; diaphragmatic hernia repair , Moh's procedure - Social History Smoking Status: Former smoker Additional Social History: Friend at bedside. Lives independently in [place]. Nonsmoker. - Physical Exam Exam: General Appearance: Alert, pleasant, non-toxic appearing Eyes: Pupils equal and round, no conjunctival pallor or injection ENT, Mouth: Mucous membranes moist Neck: Normal inspection Respiratory: anterior chest wall tenderness, lungs are clear to auscultation, good air exchange Cardiovascular: Regular rate and rhythm Gastrointestinal: Abdomen is soft and non-tender Neurological: A&O, nonfocal, normal gait Skin: Warm and dry, no rash Extremities: Nontender, trace bilateral pedal edema Psychiatric: Mood and affect normal Constitutional: Initial Vital Signs Temperature (C) 36.7 C 08/24/17 15:48 Heart Rate 68 08/24/17 15:48 Respiratory Rate 18 08/24/17 15:48 Blood Pressure 182/88 H 08/24/17 15:48 O2 Sat (%) 95 08/24/17 15:48 O2 Delivery Mode Room Air Allergies/Adverse Reactions: oxycodone HCl [From OxyContin] Allergy (Intermediate, Verified 07/06/17 14:29) Vomiting cephalexin [Cephalexin] Allergy (Verified 07/06/17 14:29) Rash and fever cephalexin monohydrate [From Keflex] Allergy (Verified 07/06/17 14:29) Rash codeine Allergy (Verified 07/06/17 14:29) passes out, n/v diazepam [From Valium] Allergy (Verified 07/06/17 14:29) GI meperidine HCl [From Demerol] Allergy (Verified 07/06/17 14:29) GI propoxyphene Allergy (Verified 07/06/17 14:29) n/v Home Medications: Medication Instructions Recorded Omeprazole [Prilosec 20 mg] 20 mg PO Q2D 09/14/14 Verapamil ER [Calan SR/ER 120MG 120 mg PO BID 12/21/14 (*)] traMADol [Ultram 50 mg (*)] 100 mg PO DAILY PRN 02/14/15 Furosemide [Lasix 20 MG (*)] 20 mg PO BID@07,19 10/15/15 Potassium Cl [Klor-Con 10 meq (RX)] 10 meq PO DAILY 10/15/15 Pravastatin Sodium [Pravachol] 10 mg PO DAILY 10/15/15 Cholecalciferol Vit D3 [Vitamin D3 5,000 units PO DAILY 06/21/16 (*)] Cholestyramine (with Sugar) 4 gm PO DAILY@12 06/21/16 [Cholestyramine Packet] Famotidine [Pepcid 20 MG (*)] 20 mg PO HS PRN 11/27/16 HYDROcodone/APAP 10/325 [Pioneer 1 - 2 tab PO Q6HRS PRN #0 tab 12/23/16 10/325 (*)] Metoprolol Tartrate [Lopressor 25 25 mg PO BID PRN #0 tab 12/23/16 mg (*)] Ondansetron Odt [Zofran Odt 4 mg 4 - 8 mg PO Q6HRS PRN #0 tab 12/23/16 (*)] Polyethylene Glycol 3350 [Miralax 17 gm PO DAILY PRN #0 pkt 12/23/16 17 gm (*)] Doxycycline Hyclate 100 mg PO BID #20 tablet 08/24/17 Ocuvite Softgel 08/24/17 Medical Decision Making - Diagnostics Imaging Results: Chest X-Ray 08/24/17 16:09 Impression: Cardiomegaly unchanged. No acute process. Imaging: I viewed and interpreted images myself ED Course/Re-evaluation: This is a non-toxic appearing 77 y/o female with history of COPD and CHF who presents with a 10-day history of cough now associated with constant and prolonged chest tightness and generalized weakness. Her exam is unremarkable; no evidence of bronchospasm. Clinical presentation c/w viral/bacterial respiratory infection. Plan for IV, labs, flu swab, EKG, chest x-ray. Chest x-ray: Postsurgical changes, cardiomegaly. No infiltrate. The 12 lead EKG was interpreted by myself. NSR, rate 62. Left anterior fascicular block, borderline R wave progression in anterior leads. See hard copy and/or "tracemaster" electronic copy for interpretation. Labs are normal including troponin and BNP. Given URI sx, prolonged chest discomfort, negative troponin, non-ischemic EKG, and normal exam, I doubt that the chest tightness is related to cardiac process and instead is most likely due to infectious etiology. Reassessed patient and discussed work up. Admission vs d/c home discussed/offered, declines admission, feels comfortable going home. She ambulated through the department without assistance and maintained a normal SpO2. She remains well-appearing and is comfortable being discharged home with doxycycline for possible pneumonia and following up with her PCP on Sunday. Strict return precautions given. Differential Diagnosis: includes though not limited to influenza, pneumonia, bronchospasm, pulm edema, hypoxia. - Data Points Laboratory Results: Laboratory Results 08/24/17 16:10 08/24/17 16:10 Departure - Departure Disposition: Home, Routine, Self-Care Clinical Impression: Acute bronchitis Condition: Good Instructions: Doxycycline (By mouth), Acute Bronchitis (ED) Additional Instructions: 1. Take doxycycline as prescribed. Be sure to complete the entire prescription even if you are feeling better. 2. Use Tylenol and ibuprofen as needed for pain or fever over the next few days. 3. Follow up with your primary care provider on Sunday for reevaluation. 4. Call the ED later tonight for results of your flu swab. 5. Return to the ED for worsening of condition. Adult Pain & Fever Control: We recommend Acetaminophen (Tylenol) and Ibuprofen (Motrin,Advil) for pain and fever control. When fever is high or pain severe, both drugs can be used at the same time, but at different intervals. Please note the time differences. Your dose is: Acetaminophen 500mg every 4 to 6 hours Ibuprofen 400mg every 6-8 hours with food Note: do not take Acetaminophen with Hydrocodone (Vicodin, Lortab) or Oxycodone (Percocet). These medications also contain Acetaminophen. No more than 3000mg of Acetaminophen should be taken in 24 hours (for an adult). Referrals: Grayson Ramsay, [Primary Care Provider] - As per Instructions Prescriptions: Doxycycline Hyclate 100 mg PO BID #20 tablet Report Scribed for: Darby Gordon Report Scribed by: Sydney Ledezma Date of Report: 08/24/17 Time of Report: 16:19 Physician Review and Approval Statement: 08/24/17 16:19 Portions of this note were transcribed by a medical care manager. I personally performed a history, physical exam, medical decision making, and confirmed accuracy of information the transcribed note.
[2017-08-24 17:20] VITALS: BP 163/81; PULSE 72; RESP 15; O2SAT 94
== END 2017-08-24 17:38 | disposition home or self-care (01) ==
DX: J20.9 Acute bronchitis, unspecified (principal); I50.9 Heart failure, unspecified; J44.9 Chronic obstructive pulmonary disease, unspecified; Z85.828 Personal history of other malignant neoplasm of skin; Z87.891 Personal history of nicotine dependence

== ENCOUNTER → 2017-11-02 | Outpatient (CLI) | payer OTHER | LOC: FIMAGING 14:13 | PROVIDERS: ATTEND Physician Assistant | DX: Z09 Encounter for follow-up examination after completed treatment for conditions other than malignant neoplasm (principal); M43.12 Spondylolisthesis, cervical region; Z98.1 Arthrodesis status ==

== ENCOUNTER → 2017-12-07 | Outpatient (CLI) | payer OTHER | LOC: FIMAGING 14:09 | PROVIDERS: ATTEND Family Medicine | DX: J43.9 Emphysema, unspecified (principal); I25.10 Atherosclerotic heart disease of native coronary artery without angina pectoris; R91.8 Other nonspecific abnormal finding of lung field; Z87.891 Personal history of nicotine dependence ==

== ENCOUNTER → 2018-03-28 | Outpatient (CLI) | payer OTHER | LOC: FIMAGING 18:27 | PROVIDERS: ATTEND Physician Assistant Surgical | DX: M51.34 Other intervertebral disc degeneration, thoracic region (principal); M48.07 Spinal stenosis, lumbosacral region; M51.36 Other intervertebral disc degeneration, lumbar region; R93.7 Abnormal findings on diagnostic imaging of other parts of musculoskeletal system ==

== ENCOUNTER 2018-11-08 16:39 | Inpatient (IN) | payer OTHER ==
--- NOTE | 2018-11-08 16:48 | EDPHY ---
H & P Time Seen by Provider: 11/08/18 16:41 HPI/ROS: CHIEF COMPLAINT: Generalized weakness HISTORY OF PRESENT ILLNESS: The patient is a 78-year-old female who in August had had a thyroidectomy and parathyroidectomy with 1 parathyroid gland reimplanted than her left forearm. She has been complaining of mild weakness since the surgery and her corn detasseler tells her that her parathyroid has not "woken up yet". She states that over the last 3 days she has become especially weak and not had much of an appetite. Mild nausea but no vomiting. She also feels constipated. She had a nurse practitioner come to her home today and dry lab work and she was found to be hypercalcemic, hypokalemic and with mild renal insufficiency. They recommended that she come to the ER. No fevers. She does take a calcium supplementation. She is not having tetany or muscle cramping. Severity: Moderate Modifying factors: None REVIEW OF SYSTEMS: Constitutional: See HPI EENTM: denies: blurred vision, double vision, nose congestion Respiratory: denies: cough, shortness of breath Cardiac: denies: chest pain, irregular heart rate, lightheadedness, palpitations Gastrointestinal/Abdominal: denies: abdominal pain, diarrhea, nausea, vomiting, blood streaked stools Genitourinary: denies: dysuria, frequency, hematuria, pain Musculoskeletal: denies: joint pain, muscle pain Skin: denies: lesions, rash, jaundice, bruising Neurological: denies: headache, numbness, paresthesia, tingling, dizziness, weakness Hematologic/Lymphatic: denies: blood clots, easy bleeding, easy bruising Immunologic/allergic: denies: HIV/AIDS, transplant 10 systems reviewed and negative except as noted EXAM: GENERAL: Well-appearing, well-nourished and in no acute distress. HEAD: Atraumatic, normocephalic. EYES: Pupils equal round and reactive to light, extraocular movements intact, sclera anicteric, conjunctiva are normal. ENT: TMs normal, nares patent, oropharynx clear without exudates. Moist mucous membranes. NECK: Normal range of motion, supple without lymphadenopathy or JVD. LUNGS: Breath sounds clear to auscultation bilaterally and equal. No wheezes rales or rhonchi. HEART: Regular rate and rhythm without murmurs, rubs or gallops. ABDOMEN: Soft, nontender, normoactive bowel sounds. No guarding, no rebound. No masses appreciated. BACK: No CVA tenderness, no spinal tenderness, step-offs or deformities EXTREMITIES: Normal range of motion, no pitting or edema. No clubbing or cyanosis. NEUROLOGICAL: Cranial nerves II through XII grossly intact. Normal speech, normal gait. 5/5 strength, normal movement in all extremities, normal sensation , normal reflexes PSYCH: Normal mood, normal affect. SKIN: Warm, dry, normal turgor, no visible rashes or lesions. Source: Patient Exam Limitations: No limitations - Personal History Tetanus Vaccine Date: 2012 - Medical/Surgical History Hx Asthma: No Hx Chronic Respiratory Disease: Yes Hx Diabetes: No Hx Cardiac Disease: Yes Hx Renal Disease: No Hx Cirrhosis: No Hx Alcoholism: No Hx HIV/AIDS: No Hx Splenectomy or Spleen Trauma: No Other PMH: medical: COPD, Atrial fibrillation, anemia, small bowel malformation ; osteoporosis, skin cancer. surgery: neck fusion, bilateral shoulder and b/l total knee replacements, parathyroidectomy, spinal fusion, corneal transplants, hysterectomy; michelle; diaphragmatic hernia repair , Moh's procedure - Family History Significant Family History: No pertinent family hx - Social History Smoking Status: Former smoker Alcohol Use: None Drug Use: None Constitutional: Initial Vital Signs Temperature (C) 36.5 C 11/08/18 16:52 Heart Rate 79 11/08/18 16:52 Respiratory Rate 16 11/08/18 16:52 Blood Pressure 211/98 H 11/08/18 16:52 O2 Sat (%) 96 11/08/18 16:52 O2 Delivery Mode Room Air Allergies/Adverse Reactions: oxycodone HCl [From OxyContin] Allergy (Intermediate, Verified 11/08/18 16:55) Vomiting cephalexin [Cephalexin] Allergy (Verified 11/08/18 16:55) Rash and fever cephalexin monohydrate [From Keflex] Allergy (Verified 11/08/18 16:55) Rash codeine Allergy (Verified 11/08/18 16:55) passes out, n/v diazepam [From Valium] Allergy (Verified 11/08/18 16:55) GI meperidine HCl [From Demerol] Allergy (Verified 11/08/18 16:55) GI propoxyphene Allergy (Verified 11/08/18 16:55) n/v Home Medications: Medication Instructions Recorded Verapamil ER [Calan SR/ER 120MG 120 mg PO BID 12/21/14 (*)] traMADol [Ultram 50 mg (*)] 100 mg PO BID PRN 02/14/15 Furosemide [Lasix 20 MG (*)] 20 mg PO BID@,17 10/15/15 Cholecalciferol Vit D3 [Vitamin D3 5,000 units PO DAILY 06/21/16 (*)] C/E/Zn/Cu/OM3/DHA/EPA/LUT/ZEAX 1 each PO DAILY 11/08/18 [Preservision Areds 2 Softgel] Calcitriol [Calcitriol (*)] 0.5 mcg PO DAILY 11/08/18 Calcium Citrate/Vitamin D3 1 each PO DAILY 11/08/18 [Citracal-Vit D 200 mg-250 Tab] Denosumab [Prolia] 60 mg SQ Q180D 11/08/18 Famotidine [Pepcid] 40 mg PO HS 11/08/18 Herbals/Supplements -Info Only 1 ea PO DAILY 11/08/18 Levothyroxine [Synthroid 112 mcg 112 mcg PO DAILY06 11/08/18 (*)] Multivitamins [Multivitamin (*)] 1 each PO DAILY 11/08/18 Potassium Cl [Klor-Con] 10 meq PO DAILY 11/08/18 Rosuvastatin Calcium 5 mg PO DAILY 11/08/18 Warfarin Sodium [Coumadin 2MG (*)] 2 mg PO SUMOTUWETHSA@16 11/08/18 Warfarin Sodium [Coumadin 3MG (*)] 3 mg PO FR@16 11/08/18 Medical Decision Making - Diagnostics EKG Interpretation: An EKG obtained and was read and documented in trace view. Please see trace view for full reading and report. Sinus rhythm, no acute ischemic changes QTC 404 ED Course/Re-evaluation: Patient has high calcium, slightly low potassium and renal insufficiency. 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 EKG does not show significant abnormalities. Vital signs remained stable. Will admit for hydration and continued care. Will obtain VBG. 6:00 p.m. Discussed the case with Dr. Marshall who will admit. 745 p.m. the patient's 2nd chemistry shows decreased potassium significantly. It is unclear which is correct. Will repeat but will start on potassium supplementation. She also is hypertensive and did not take her blood pressure medicine today. Will give her evening dose of metoprolol. Differential Diagnosis: Partial list of the Differential diagnosis considered include but were not limited to; hypercalcemia, milk alkali syndrome, medication reaction, hypothyroid and although unlikely based on the history and physical exam, I also considered acute coronary disease, infection. - Data Points Laboratory Results: Laboratory Results 11/08/18 16:49 11/08/18 19:45 Medications Given: Hydralazine HCl (Apresoline) 25 mg PO QID PRN PRN Reason: Sbp Greater Than 180 Stop: 05/08/19 11:59 Last Admin: 11/09/18 11:44 Dose: 25 mg Sodium Chloride (Ns) 1,000 mls @ 200 mls/hr IV CONT RAJI Stop: 05/07/19 20:29 Last Admin: 11/09/18 10:13 Dose: 1,000 mls Levothyroxine Sodium (Synthroid) 112 mcg PO DAILY06 RAJI Stop: 05/08/19 05:59 Last Admin: 11/09/18 06:25 Dose: 112 mcg Multivitamins (Tab-A-Khalif) 1 each PO DAILY RAJI Stop: 05/08/19 08:59 Last Admin: 11/09/18 08:43 Dose: 1 each Ondansetron HCl (Zofran Odt) 4 mg PO Q4HRS PRN PRN Reason: Nausea/Vomiting, Use 1st Stop: 05/07/19 20:15 Last Admin: 11/09/18 10:58 Dose: 4 mg Potassium Chloride (Klor-Con) 10 meq PO DAILY RAJI Stop: 05/08/19 08:59 Last Admin: 11/09/18 12:04 Dose: Not Given Rosuvastatin Calcium (Crestor) 5 mg PO DAILY RAJI Stop: 05/08/19 08:59 Last Admin: 11/09/18 08:43 Dose: 5 mg Verapamil HCl (Calan Sr) 120 mg PO BID RAJI Stop: 05/07/19 20:59 Last Admin: 11/09/18 08:43 Dose: 120 mg Discontinued Medications Calcitonin (Calcitonin Inj Syringe) 200 units SC ONCE ONE Stop: 11/08/18 20:25 Last Admin: 11/09/18 01:38 Dose: Not Given Calcitonin (Calcitonin Inj Syringe) 200 units SC ONCE ONE Stop: 11/09/18 08:45 Last Admin: 11/09/18 10:13 Dose: 200 units Furosemide (Lasix Injection) 20 mg IVP ONCE ONE Stop: 11/08/18 20:24 Last Admin: 11/09/18 01:38 Dose: Not Given Sodium Chloride (Ns) 1,000 mls @ 0 mls/hr IV EDNOW ONE; Wide Open PRN Reason: Protocol Stop: 11/08/18 18:07 Last Admin: 11/08/18 19:00 Dose: 1,000 mls Potassium Chloride (Potassium Cl 10 Meq (Premix)) 100 mls @ 200 mls/hr IV Q30M RAJI Stop: 11/08/18 21:59 Last Admin: 11/09/18 00:53 Dose: 100 mls Zoledronic Acid 4 mg/ Dextrose 105 mls @ 210 mls/hr IV ONCE ONE Stop: 11/09/18 09:10 Last Admin: 11/09/18 09:27 Dose: 105 mls Metoprolol Tartrate (Lopressor) 25 mg PO ONCE ONE Stop: 11/08/18 19:45 Last Admin: 11/08/18 20:01 Dose: 25 mg Potassium Chloride (Klor-Con) 10 - 40 meq PO ONCE ONE PRN Reason: Protocol Stop: 11/09/18 08:21 Last Admin: 11/09/18 08:46 Dose: 40 meq Departure - Departure Disposition: [facility] Acute Clinical Impression: Hypercalcemia, Renal insufficiency, Hypokalemia Condition: Fair
[2018-11-08 17:17] LABS: PLATELET COUNT 354 10^3/uL (150-400)
--- NOTE | 2018-11-08 18:01 | CPEKG ---
Test Reason : OPEN Blood Pressure : / mmHG Vent. Rate : 079 BPM Atrial Rate : 079 BPM P-R Int : 164 ms QRS Dur : 100 ms QT Int : 352 ms P-R-T Axes : -36 -61 066 degrees QTc Int : 404 ms Sinus rhythm Supraventricular bigeminy Confirmed by Juan Springer ([id number]) on 11/08/2018 6:00:58 PM Referred By: Juan Springer Confirmed By:Juan Springer
[2018-11-08] MEDS ORDERED: NS 1,000 ML IV ONE (18:06)
[2018-11-08] MEDS ORDERED: METOPROLOL TARTRATE 25 MG TAB PO ONE (19:44)
[2018-11-08] MEDS: POTASSIUM Cl (KCl) 100 ML IV SCH ×3 (20:15→23:43)
[2018-11-08] MEDS ORDERED: ONDANSETRON 4 MG/2 ML VIAL IVP PRN (20:16)
[2018-11-08] MEDS ORDERED: HYDROCODONE/APAP 5/325 TAB PO PRN (20:16)
[2018-11-08] MEDS ORDERED: PROMETHAZINE HCL 25 MG/ML INJ IVP PRN (20:16)
[2018-11-08] MEDS ORDERED: ACETAMINOPHEN 325 MG TAB PO PRN (20:16)
[2018-11-08] MEDS ORDERED: ONDANSETRON DISINTEGRATING 4 MG TAB PO PRN (20:16)
[2018-11-08] MEDS ORDERED: oxyCODONE IR 5 MG TAB PO PRN (20:16)
[2018-11-08] MEDS ORDERED: HYDROmorphONE/DILAUDID 1 MG/ML INJ IVP PRN (20:16)
[2018-11-08] MEDS ORDERED: FUROSEMIDE 20 MG/2 ML VIAL IVP ONE (20:23)
[2018-11-08] MEDS ORDERED: CALCITONIN 200 UNITS/ML SYR SC ONE (20:24)
--- NOTE | 2018-11-08 20:26 | PDGENHP ---
History and Physical - Chief Complaint weakness - History of Present Illness 78 yo F with PMH that includes a fib, hyperparathyroidism and who is s/p thyroidectomy/parathyroidectomy in August with reimplantation of one parathyroid glands into her arm. She notes that she has been followed by her deliverer merchandise for this and has been maintained on calcitriol and calcium supplementation since surgery as her parathyroid gland was not felt to be responding as of yet. She did have hypercalcemia initially in the post operative period and calcitriol was stopped, but then become hypocalcemic again and it was resumed. She has been on both calcitriol and calcium since late September it sounds like. For the last several days she has been very weak to the point where she can hardly get out of bed. While I am speaking to her she notes she is having a hard time thinking as well and that has been present as well. She has some aching pain in her muscles diffusely, particularly in her bilateral calves and constipation. She has not appreciated any urinary changes. History Information - Allergies/Home Medication List Allergies/Adverse Reactions: oxycodone HCl [From OxyContin] Allergy (Intermediate, Verified 11/08/18 16:55) Vomiting cephalexin [Cephalexin] Allergy (Verified 11/08/18 16:55) Rash and fever cephalexin monohydrate [From Keflex] Allergy (Verified 11/08/18 16:55) Rash codeine Allergy (Verified 11/08/18 16:55) passes out, n/v diazepam [From Valium] Allergy (Verified 11/08/18 16:55) GI meperidine HCl [From Demerol] Allergy (Verified 11/08/18 16:55) GI propoxyphene Allergy (Verified 11/08/18 16:55) n/v Home Medications: Verapamil ER [Calan SR/ER 120MG (*)] 120 mg PO BID 12/21/14 [Last Taken ] traMADol [Ultram 50 mg (*)] 100 mg PO BID PRN 02/14/15 [Last Taken 11/11/15] Furosemide [Lasix 20 MG (*)] 20 mg PO BID@,17 10/15/15 [Last Taken 11/10/15] Cholecalciferol Vit D3 [Vitamin D3 (*)] 5,000 units PO DAILY 06/21/16 [Last Taken Unknown] C/E/Zn/Cu/OM3/DHA/EPA/LUT/ZEAX [Preservision Areds 2 Softgel] 1 each PO DAILY [Last Taken Unknown] Calcitriol [Calcitriol (*)] 0.5 mcg PO DAILY 11/08/18 [Last Taken Unknown] Calcium Citrate/Vitamin D3 [Citracal-Vit D 200 mg-250 Tab] 1 each PO DAILY 11/08 [Last Taken Unknown] Denosumab [Prolia] 60 mg SQ Q180D 11/08/18 [Last Taken 04/30/18] Famotidine [Pepcid] 40 mg PO HS 11/08/18 [Last Taken Unknown] Herbals/Supplements -Info Only 1 ea PO DAILY 11/08/18 [Last Taken Unknown] Levothyroxine [Synthroid 112 mcg (*)] 112 mcg PO DAILY06 11/08/18 [Last Taken Unknown] Multivitamins [Multivitamin (*)] 1 each PO DAILY 11/08/18 [Last Taken Unknown] Potassium Cl [Klor-Con] 10 meq PO DAILY 11/08/18 [Last Taken Unknown] Rosuvastatin Calcium 5 mg PO DAILY 11/08/18 [Last Taken Unknown] Warfarin Sodium [Coumadin 2MG (*)] 2 mg PO SUMOTUWETHSA@16 11/08/18 [Last Taken 11/07/18] Warfarin Sodium [Coumadin 3MG (*)] 3 mg PO FR@16 11/08/18 [Last Taken Unknown] I have personally reviewed and updated: family history, medical history, social history, surgical history - Past Medical History atrial fibrillation (on chronic AC), GERD, hypertension, hyperlipidemia Additional medical history: primary hyperparathyroidism. multinodular goiter. osteoporosis. hiatal hernia. B tka - Surgical History Reports: hernia repair (hiatal ), spinal surgery (cervical fusion) Additional surgical history: thyroidectomy. parathyroidectomy and reimplantation to arm - Family History Positive for: non-pertinent - Social History Smoking Status: Former smoker Alcohol Use: None Drug Use: None Additional social history: lives independently Review of Systems Review of Systems: ROS: 10pt was reviewed & negative except for what was stated in HPI & below Physical Exam Physical Exam: Temp Pulse Resp BP Pulse Ox 36.5 C 83 16 212/105 H 96 11/08/18 16:52 11/08/18 19:47 11/08/18 19:47 11/08/18 19:47 11/08/18 19:47 Constitutional: no apparent distress, uncomfortable Eyes: anicteric sclera, other (left eye cloudy) Ears, Nose, Mouth, Throat: hearing normal, dry mucous membranes Cardiovascular: regular rate and rhythym, no murmur, rub, or gallop, No edema Respiratory: no respiratory distress, no rales or rhonchi Gastrointestinal: normoactive bowel sounds, soft, non-tender abdomen Genitourinary: no bladder tenderness Skin: warm, normal color Musculoskeletal: muscular tenderness, No asymmetric calves Neurologic: AAOx3 Psychiatric: interacting appropriately, not anxious Lab Data & Imaging Review 11/08/18 16:49 11/08/18 19:45 WBC 13.74 10^3/uL (3.80-9.50) H 11/08/18 16:49 RBC 5.44 10^6/uL (4.18-5.33) H 11/08/18 16:49 Hgb 14.9 g/dL (12.6-16.3) 11/08/18 16:49 Hct 46.9 % (38.0-47.0) 11/08/18 16:49 MCV 86.2 fL (81.5-99.8) 11/08/18 16:49 MCH 27.4 pg (27.9-34.1) L 11/08/18 16:49 MCHC 31.8 g/dL (32.4-36.7) L 11/08/18 16:49 RDW 14.9 % (11.5-15.2) 11/08/18 16:49 Plt Count 354 10^3/uL (150-400) 11/08/18 16:49 MPV 10.9 fL (8.7-11.7) 11/08/18 16:49 Neut % (Auto) 84.9 % (39.3-74.2) H 11/08/18 16:49 Lymph % (Auto) 7.9 % (15.0-45.0) L 11/08/18 16:49 [place] % (Auto) 6.3 % (4.5-13.0) 11/08/18 16:49 Eos % (Auto) 0.1 % (0.6-7.6) L 11/08/18 16:49 Baso % (Auto) 0.2 % (0.3-1.7) L 11/08/18 16:49 Nucleat RBC Rel Count 0.0 % (0.0-0.2) 11/08/18 16:49 Absolute Neuts (auto) 11.67 10^3/uL (1.70-6.50) H 11/08/18 16:49 Absolute Lymphs (auto) 1.09 10^3/uL (1.00-3.00) 11/08/18 16:49 Absolute Monos (auto) 0.86 10^3/uL (0.30-0.80) H 11/08/18 16:49 Absolute Eos (auto) 0.01 10^3/uL (0.03-0.40) L 11/08/18 16:49 Absolute Basos (auto) 0.03 10^3/uL (0.02-0.10) 11/08/18 16:49 Absolute Nucleated RBC 0.00 10^3/uL (0-0.01) 11/08/18 16:49 Immature Gran % 0.6 % (0.0-1.1) 11/08/18 16:49 Immature Gran # 0.08 10^3/uL (0.00-0.10) 11/08/18 16:49 Puncture Site Not Reported 11/08/18 18:30 Patient Temperature 37.0 DEGREES 11/08/18 18:30 VBG pH 7.51 (7.31-7.42) H 11/08/18 18:30 VBG HCO3 28 mEQ/L (22-26) H 11/08/18 18:30 VBG Total CO2 29 mEq/L (21-27) H 11/08/18 18:30 VBG O2 Saturation 99 % (65-75) H 11/08/18 18:30 VBG Base Excess 5.2 mEq/L (-2.5-2.5) H 11/08/18 18:30 Mixed VBG pCO2 36 mmHg (40-44) L 11/08/18 18:30 Mixed VBG pO2 193 mmHG (35-40) H 11/08/18 18:30 Sodium 135 mEq/L (135-145) 11/08/18 18:30 Potassium 2.7 mEq/L (3.5-5.2) L* 11/08/18 18:30 Chloride 96 mEq/L (97-110) L 11/08/18 18:30 Carbon Dioxide 29 mEq/l (22-31) 11/08/18 18:30 Anion Gap 10 mEq/L (6-14) 11/08/18 18:30 BUN 43 mg/dL (7-23) H 11/08/18 18:30 Creatinine 1.8 mg/dL (0.6-1.0) H 11/08/18 18:30 Estimated GFR 27 11/08/18 18:30 Glucose 103 mg/dL (70-100) H 11/08/18 18:30 Calcium 15.5 mg/dL (8.5-10.4) H* 11/08/18 18:30 Ionized Calcium 2.11 MMOL/L (1.12-1.30) H* 11/08/18 16:49 Phosphorus 4.8 mg/dL (2.5-4.5) H 11/08/18 16:49 Total Bilirubin 0.9 mg/dL (0.1-1.4) 11/08/18 16:49 Conjugated Bilirubin 0.4 mg/dL (0.0-0.5) 11/08/18 16:49 Unconjugated Bilirubin 0.5 mg/dL (0.0-1.1) 11/08/18 16:49 AST 48 IU/L (14-46) H 11/08/18 16:49 ALT 42 IU/L (9-52) 11/08/18 16:49 Alkaline Phosphatase 99 IU/L (38-126) 11/08/18 16:49 Total Protein 7.2 g/dL (6.3-8.2) 11/08/18 16:49 Albumin 4.6 g/dL (3.5-5.0) 11/08/18 16:49 TSH 2.150 uIU/mL (0.465-4.680) 11/08/18 16:49 Free T4 2.43 ng/dL (0.59-2.19) H 11/08/18 16:49 Specimen Hemolysis 116 11/08/18 16:49 Visualized and Interpreted EKG results: Yes EKG Interpretation: Positive for: normal sinsus rhythm EKG additional interpertation: ventricular bigeminy Assessment & Plan Assessment: Hypercalcemia (Acute) Renal insufficiency (Acute) Hypokalemia (Acute) 78 yo F with hx of primary hyperparathyroid s/p parathyroidectomy presenting with hypercalcemia in setting of calcitriol/calcium supplementation # severe hypercalcemia: in the setting of prolonged administration of calcitriol and calcium post parathyroidectomy with apparent issues previously discontinuing these meds and hypocalcemia developing. Will hold calcitriol and calcium, IVF overnight, lasix in am if kidney function and K stable. Given etiology of her hypercalcemia and short half life of calcitriol should resolve without further interventions but if not coming down would start calcitonin/ zoledronic acid in am. # primary hyperparathyroidism: s/p parathyroidectomy and reimplantation of PT gland in forearm, will check PTH levels, followed by Dr. Wong # hypothyroid: s/p thyroidectomy, TSH wnl, Ft4 slightly high, continue home meds # paroxysmal a fib: currently in SR, on chronic AC, INR of 2 last week, will repeat INR, continue warfarin # hypokalemia: with profound drop that was thought to be perhaps an error but confirmed on multiple checks and on istat, repleting per protocol # osteoporosis: on prolia as an op, as above consider zoledronic acid in am if calcium remains high, followed by endocrine # IP status given severe electrolyte abnormalities # Patient new to my care. Old records reviewed and summarized as above. care plan reviewed with ER doctor as above.
[2018-11-08] MEDS ORDERED: PROTOCOL POTASSIUM 1 DOSE MISC PRN ×2 (20:49)
[2018-11-08] MEDS ORDERED: PROTOCOL MAGNESIUM 1 DOSE IV PRN (20:49)
[2018-11-08] MEDS ORDERED: traMADol 50 MG TAB PO PRN (20:50)
[2018-11-08] MEDS: VERAPAMIL ER 120 MG TAB PO SCH (22:26)
[2018-11-08] MEDS: NS 1,000 ML IV SCH (22:26)
[2018-11-09] MEDS: POTASSIUM Cl (KCl) 100 ML IV SCH (00:53)
[2018-11-09 04:31] LABS: PLATELET COUNT 297 10^3/uL (150-400)
[2018-11-09] MEDS: NS 1,000 ML IV SCH ×5 (04:31→23:31)
[2018-11-09 04:40] LABS: INR 2.15 (0.83-1.16)
[2018-11-09] MEDS: LEVOTHYROXINE 112 MCG TAB PO SCH (06:25)
[2018-11-09] MEDS ORDERED: POTASSIUM CL 10 MEQ TAB PO ONE ×3 (08:20→20:37)
[2018-11-09] MEDS ORDERED: ZOLEDRONIC ACID 4 MG in D5W 100 ML IV ONE (08:41)
[2018-11-09] MEDS: ROSUVASTATIN CALCIUM 10 MG TAB PO SCH (08:43)
[2018-11-09] MEDS: MULTIVITAMINS 1 EACH TAB PO SCH (08:43)
[2018-11-09] MEDS: VERAPAMIL ER 120 MG TAB PO SCH ×2 (08:43→20:13)
[2018-11-09] MEDS ORDERED: CALCITONIN 200 UNITS/ML SYR SC ONE (08:44)
--- NOTE | 2018-11-09 09:21 | PDMN ---
Medical Necessity Medical necessity: Pt meets inpt criteria per MD order and MG-SIC, Systemic or Infectious Condition GRG, Hypercalcemia, 3 days. 78 y/o presenting w/extreme weakness and muscle pain admitted w/severe hypercalcemia (Ca 14.6 on admission and 14.5 this AM) and hypokalemia w/K of 2.5. PMHx includes hyperparathyroidism s/p thyroidectomy/parathyroidectomy Aug 2018, prolonged admin of calcitrol and calcium post parathyroidectomy, hypothyroid s/p thyroidectomy, afib. PCU care, anticipate>2MN given severe electrolyte abnormalities.
[2018-11-09] MEDS ORDERED: MAGNESIUM HYDROXIDE 30 ML UDCUP PO PRN (11:31)
[2018-11-09] MEDS ORDERED: LACTULOSE 20 GM/30 ML UDCUP PO PRN (11:31)
[2018-11-09] MEDS: hydrALAZINE 25 MG TAB PO PRN (11:44)
[2018-11-09] MEDS: POTASSIUM CL 10 MEQ TAB PO SCH (12:04)
--- NOTE | 2018-11-09 13:51 | ASMTCMCOM ---
CM Note CM Note Notes: Pt is a 78 yo F presents with hypercalcemia and renal insufficiency. Pt lives home alone in [place], her daughter lives in [place]. PT/OT ordered, Evals pending. Endocrinology consulted. Plan: TBD Date Signed: 11/09/2018 01:50 PM Electronically Signed By:MEAGHAN Martin
--- NOTE | 2018-11-09 15:17 | HOSPPROG ---
Hospitalist Progress Note Assessment/Plan: 78 yo F with hx of primary hyperparathyroid s/p parathyroidectomy presenting with hypercalcemia in setting of calcitriol/calcium supplementation # severe hypercalcemia: in the setting of prolonged administration of calcitriol and calcium post parathyroidectomy with apparent issues previously discontinuing these meds and hypocalcemia developing. - Continue holding calcitriol and calcium - S/p IVF overnight, will continue for now - S/p 20 mg IVP Lasix this AM - S/p Calcitonin last night - Repeat Ca 14.5 this AM, redosed with Calcitonin this morning as well as dose of Zoledronic Acid - Endocrinology consulted this morning for further evaluation and management , recommending checking PTH rP # COREY- Cr increased to 1.9 on admission, baseline 0.8, in setting of hypercalcemia, will continue IVF, continue to monitor BMP, I/O, avoid nephrotoxic agents, will consider nephrology consult in the AM if no improvement # primary hyperparathyroidism: s/p parathyroidectomy and reimplantation of PT gland in forearm, PTH level is low, followed by Dr. Wong, endocrinology consult as above # Elevated BP: BP as high as 211/98 on admission, 199/78 this AM, not currently on home BP meds, will order PRN Hydralazine for SBP >180 for now, consider starting long acting anti-hypertensive if remains elevated # hypothyroid: s/p thyroidectomy, TSH wnl, Ft4 slightly high, continue home meds # paroxysmal a fib: currently in SR, on chronic AC, INR of 2 last week, repeat INR 2.15 this AM, continue warfarin # hypokalemia: with profound drop that was thought to be perhaps an error but confirmed on multiple checks and on istat, repleting per protocol # osteoporosis: on prolia as an op, zoledronic acid this AM as above # IP status given severe electrolyte abnormalities Subjective: Pt reports fatigue, weakness this AM Objective: Vital Signs Temp Pulse Resp BP Pulse Ox 36.7 C 69 15 185/118 H 93 11/09/18 11:36 11/09/18 11:36 11/09/18 11:36 11/09/18 11:44 11/09/18 11:36 Laboratory Results 11/09/18 03:52 11/09/18 13:00 11/08/18 11/09/18 11/10/18 05:59 05:59 05:59 Intake Total 2785 Output Total 1800 1200 Balance 985 -1200 PT 23.0 SEC (12.0-15.0) H 11/09/18 03:52 INR 2.15 (0.83-1.16) H 11/09/18 03:52 - Physical Exam Constitutional: chronically ill appearing Eyes: PERRL Ears, Nose, Mouth, Throat: moist mucous membranes Cardiovascular: regular rate and rhythym Respiratory: no respiratory distress ICD10 Worksheet Patient Problems: Problems Problem Status Onset Hypercalcemia Acute Hypokalemia Acute Renal insufficiency Acute Abdominal pain Acute Diarrhea Acute Hemarthrosis involving knee joint Acute Hematoma Acute Hernia Acute Localized osteoarthritis of right knee Acute Parathyroid adenoma Acute Primary osteoarthritis of left knee Acute Supratherapeutic INR Acute
[2018-11-09] MEDS ORDERED: POTASSIUM CL 20 MEQ TAB PO ONE (15:28)
--- NOTE | 2018-11-09 15:35 | PDGENHP ---
History and Physical - Chief Complaint Fatigue - History of Present Illness Chief complaint extreme fatigue, HPI I was asked by Dr. Montgomery to see patient Antonieta Turcios" for an endocrinology consult for severe hypercalcemia. Bertha is a very pleasant 78-year-old woman with a history of primary hyperparathyroidism. Her usual principal technical writer is Dr. Roseline Wong M.D. Dr. Wong 's notes from 10/29/2018 were reviewed. Since the patient was very tired and drowsy most of the history today was obtained from Gloria who is a physician secretary administrative assistant Bertha is recently status post parathyroidectomy for primary hyperparathyroidism. She underwent parathyroidectomy on 09/16/[address] Priscilla Humphreys at [facility]. Surgery and pathology reports are not available at this time. It was apparently a technically difficult procedure,since she has had previous neck surgeries, including a C-spine fusion surgery. Apparently 2 parathyroid glands were identified which were removed,1 parathyroid gland was transplanted in her left forearm. She also had thyroidectomy with both thyroid lobes removed, apparently to get better access to the parathyroid glands Post operatively she had hypocalcemia and was treated with Citracal 1200 mg daily and calcitriol, but she developed hypercalcemia, hence Calcitriol was discontinued prior to discharge Her intact PTH preoperatively was 241. Postoperatively she developed hypocalcemia with a serum calcium of 6.6 and intact PTH was 24 on 10/01/2018, 3 weeks after surgery. She was restarted on Calcitrol 0.5 mcg 1 tablet daily and continued on calcium citrate. At her last visit with Dr Wong on 10/29/2018 Calcitriol 0.5 mcg and citracal continued. Pt had symptoms of fatigue. Recent hospital admission is for worsening fatigue . Labs showed severe hypercalcemia with serum calcium 16.5, extreme dehydration. Her intact PTH was very low at less than 3.4. Hence no evidence of recurrence of primary hyperparathyroidism. PTH rP has not yet been done. When I saw the patient this afternoon she appears very frail , she answered my questions but would fall asleep in the middle of a sentence. She has her family members in the room, and also Gloria was a physician secretary administrative assistant and also has power of compliance attorney. When asked her if she had any symptoms her only complaint was constipation. Apparently she has had hard stool that she had to "dig out". She denies any nausea or vomiting. She denies any abdominal pain. She has some tenderness both lower legs. She denies any joint pain pain, or muscle aches. She did feel better after parathyroid surgery initially, but subsequently got fatigued. She has a long history of smoking and a history of longstanding COPD. Family history of kidney cancer in her father. She has a history of osteoporosis and has had Reclast infusions in the year 2014 , 2015, 2016. She had a Prolia injection in April 2018 and is presently due for Prolia. Her last DEXA scan was in June 2017 at [facility]. She had osteoporosis with a T-score of -3.6 at the left femoral neck, - 3.9 at the right femoral neck and -4.9 at the left distal radius. PAST MED HISTORY History of hyperparathyroidism as above Hypertension Postoperative hypothyroidism presently on levothyroxine 112 mcg daily history of a thyroid nodule, ultrasound-guided biopsy in July 2013 was benign. Physical exam Frail elderly lady who is in no acute distress, but is quite somnolent, answers questions appropriately, but falls asleep in the middle of a sentence. Neck exam shows no palpable thyroid she has surgical scar which is healed. She has a surgical scar in her left forearm (incision for implanted parathyroid) No epigastric tenderness. Heart regular rate and rhythm Lungs decreased air entry bilaterally Abdomen is soft, nontender, bowel sounds present. She has kyphosis of her thoracic spine. Extremity she has mild tenderness LE bilaterally(shins) Assessment and plan 1. 78-year-old woman with history of hyperparathyroidism, recently status post parathyroidectomy with 2 parathyroid glands resected and 1 transplanted in the forearm. Her intact PTH was high at 241 preoperatively, and dropped to as low as 24 postoperative early indicating successful parathyroid surgery. She did have postoperative hypoparathyroidism as expected, however she was hypercalcemic on treatment with Rocaltrol and calcium citrate. At admission today the hypercalcemia has significantly worsened. Her intact PTH is very low at less than 3.4. Hence she does NOT have recurrence of primary hyperparathyroidism. Based on the severity of hypercalcemia low intact PTH, long history of smoking and COPD, hypercalcemia of malignancy should be considered. PTHrp has been ordered. This gets sent to [facility] and and according to the lab may take up to 5 days to get results Meanwhile patient is doing better with hydration, furosemide and zoledronic acid. Her serum calcium is decreased from 16.5 to 13.7. She does have renal insufficiency with serum creatinine of 1.7 she has significant given her low body weight. Nephrology consult should be considered. Recommend oncology consultation if PTHrp is high. Status post bilateral thyroid lobectomy, with subsequent hypothyroidism she is on levothyroxine 112 mcg daily. Will check free T4 and TSH today. I have discussed my assessment and plan with Hospitalist Dr. Mason Montgomery. Assessment and plan 1. 78-year-old woman with history of hyperparathyroidism, recently status post parathyroidectomy with 2 parathyroid glands resected and 1 transplanted in the forearm. Her intact PTH was high at 241 preoperatively, and dropped to as low as 24 postoperative early indicating successful parathyroid surgery. She did have postoperative hypoparathyroidism as expected, however she was hypercalcemic on treatment with Rocaltrol and calcium citrate. At admission today the hypercalcemia has significantly worsened. Her intact PTH is very low at less than 3.4. Hence she does NOT have recurrence of primary hyperparathyroidism. Based on the severity of hypercalcemia low intact PTH, long history of smoking and COPD, hypercalcemia of malignancy should be considered. PTHrp has been ordered. This gets sent to [facility] and and according to the lab may take up to 5 days to get results Meanwhile patient is doing better with hydration, furosemide and zoledronic acid. Her serum calcium is decreased from 16.5 to 13.7. She does have renal insufficiency with serum creatinine of 1.7 she has significant given her low body weight. Nephrology consult should be considered. Recommend oncology consultation if PTHrp is high. Status post bilateral thyroid lobectomy, with subsequent hypothyroidism she is on levothyroxine 112 mcg daily. Will check free T4 and TSH today. I have discussed my assessment and plan with Hospitalist Dr. Mason Montgomery. History Information - Allergies/Home Medication List Allergies/Adverse Reactions: oxycodone HCl [From OxyContin] Allergy (Intermediate, Verified 11/08/18 16:55) Vomiting cephalexin [Cephalexin] Allergy (Verified 11/08/18 16:55) Rash and fever cephalexin monohydrate [From Keflex] Allergy (Verified 11/08/18 16:55) Rash codeine Allergy (Verified 11/08/18 16:55) passes out, n/v diazepam [From Valium] Allergy (Verified 11/08/18 16:55) GI meperidine HCl [From Demerol] Allergy (Verified 11/08/18 16:55) GI propoxyphene Allergy (Verified 11/08/18 16:55) n/v Home Medications: Verapamil ER [Calan SR/ER 120MG (*)] 120 mg PO BID 12/21/14 [Last Taken ] traMADol [Ultram 50 mg (*)] 100 mg PO BID PRN 02/14/15 [Last Taken 11/11/15] Furosemide [Lasix 20 MG (*)] 20 mg PO BID@,10/15/15 [Last Taken 11/10/15] Cholecalciferol Vit D3 [Vitamin D3 (*)] 5,000 units PO DAILY 06/21/16 [Last Taken Unknown] C/E/Zn/Cu/OM3/DHA/EPA/LUT/ZEAX [Preservision Areds 2 Softgel] 1 each PO DAILY [Last Taken Unknown] Calcitriol [Calcitriol (*)] 0.5 mcg PO DAILY 11/08/18 [Last Taken Unknown] Calcium Citrate/Vitamin D3 [Citracal-Vit D 200 mg-250 Tab] 1 each PO DAILY 11/08 [Last Taken Unknown] Denosumab [Prolia] 60 mg SQ Q180D 11/08/18 [Last Taken 04/30/18] Famotidine [Pepcid] 40 mg PO HS 11/08/18 [Last Taken Unknown] Herbals/Supplements -Info Only 1 ea PO DAILY 11/08/18 [Last Taken Unknown] Levothyroxine [Synthroid 112 mcg (*)] 112 mcg PO DAILY06 11/08/18 [Last Taken Unknown] Multivitamins [Multivitamin (*)] 1 each PO DAILY 11/08/18 [Last Taken Unknown] Potassium Cl [Klor-Con] 10 meq PO DAILY 11/08/18 [Last Taken Unknown] Rosuvastatin Calcium 5 mg PO DAILY 11/08/18 [Last Taken Unknown] Warfarin Sodium [Coumadin 2MG (*)] 2 mg PO SUMOTUWETHSA@16 11/08/18 [Last Taken 11/07/18] Warfarin Sodium [Coumadin 3MG (*)] 3 mg PO FR@11/08/18 [Last Taken Unknown] - Past Medical History atrial fibrillation (on chronic AC), GERD, hypertension, hyperlipidemia Additional medical history: primary hyperparathyroidism. multinodular goiter. osteoporosis. hiatal hernia. B tka - Surgical History Reports: hernia repair (hiatal ), spinal surgery (cervical fusion) Additional surgical history: thyroidectomy. parathyroidectomy and reimplantation to arm - Family History Positive for: non-pertinent - Social History Smoking Status: Former smoker Alcohol Use: None Drug Use: None Additional social history: lives independently Review of Systems Review of Systems: Physical Exam Physical Exam: Temp Pulse Resp BP Pulse Ox 36.7 C 69 15 185/118 H 93 11/09/18 11:36 11/09/18 11:36 11/09/18 11:36 11/09/18 11:44 11/09/18 11:36 Lab Data & Imaging Review 11/09/18 03:52 11/10/18 03:34 WBC 15.96 10^3/uL (3.80-9.50) H 11/09/18 03:52 RBC 4.94 10^6/uL (4.18-5.33) 11/09/18 03:52 Hgb 13.6 g/dL (12.6-16.3) 11/09/18 03:52 POC Hgb 13.3 gm/dL (12.6-16.3) 11/08/18 20:48 Hct 43.2 % (38.0-47.0) 11/09/18 03:52 POC Hct 39 % (38-47) 11/08/18 20:48 MCV 87.4 fL (81.5-99.8) 11/09/18 03:52 MCH 27.5 pg (27.9-34.1) L 11/09/18 03:52 MCHC 31.5 g/dL (32.4-36.7) L 11/09/18 03:52 RDW 14.9 % (11.5-15.2) 11/09/18 03:52 Plt Count 297 10^3/uL (150-400) 11/09/18 03:52 MPV 10.3 fL (8.7-11.7) 11/09/18 03:52 Neut % (Auto) 89.8 % (39.3-74.2) H 11/09/18 03:52 Lymph % (Auto) 4.9 % (15.0-45.0) L 11/09/18 03:52 Millard % (Auto) 4.6 % (4.5-13.0) 11/09/18 03:52 Eos % (Auto) 0.0 % (0.6-7.6) L 11/09/18 03:52 Baso % (Auto) 0.3 % (0.3-1.7) 11/09/18 03:52 Nucleat RBC Rel Count 0.0 % (0.0-0.2) 11/09/18 03:52 Absolute Neuts (auto) 14.33 10^3/uL (1.70-6.50) H 11/09/18 03:52 Absolute Lymphs (auto) 0.79 10^3/uL (1.00-3.00) L 11/09/18 03:52 Absolute Monos (auto) 0.74 10^3/uL (0.30-0.80) 11/09/18 03:52 Absolute Eos (auto) 0.00 10^3/uL (0.03-0.40) L 11/09/18 03:52 Absolute Basos (auto) 0.04 10^3/uL (0.02-0.10) 11/09/18 03:52 Absolute Nucleated RBC 0.00 10^3/uL (0-0.01) 11/09/18 03:52 Immature Gran % 0.4 % (0.0-1.1) 11/09/18 03:52 Immature Gran # 0.06 10^3/uL (0.00-0.10) 11/09/18 03:52 PT 23.0 SEC (12.0-15.0) H 11/09/18 03:52 INR 2.15 (0.83-1.16) H 11/09/18 03:52 Puncture Site Not Reported 11/08/18 18:30 Patient Temperature 37.0 DEGREES 11/08/18 18:30 VBG pH 7.51 (7.31-7.42) H 11/08/18 18:30 VBG HCO3 28 mEQ/L (22-26) H 11/08/18 18:30 VBG Total CO2 29 mEq/L (21-27) H 11/08/18 18:30 VBG O2 Saturation 99 % (65-75) H 11/08/18 18:30 VBG Base Excess 5.2 mEq/L (-2.5-2.5) H 11/08/18 18:30 Mixed VBG pCO2 36 mmHg (40-44) L 11/08/18 18:30 Mixed VBG pO2 193 mmHG (35-40) H 11/08/18 18:30 POC Sodium 140 mEq/L (135-145) 11/08/18 20:48 Sodium 138 mEq/L (135-145) 11/09/18 03:52 POC Potassium 3.2 mEq/L (3.3-5.0) L 11/08/18 20:48 Potassium 3.3 mEq/L (3.5-5.2) L 11/09/18 13:00 POC Chloride 101 mEq/L (97-110) 11/08/18 20:48 Chloride 104 mEq/L (97-110) 11/09/18 03:52 Carbon Dioxide 24 mEq/l (22-31) 11/09/18 03:52 POC Total CO2 31 mEq/L (22-31) 11/08/18 20:48 Anion Gap 10 mEq/L (6-14) 11/09/18 03:52 POC BUN 46 mg/dL (7-23) H 11/08/18 20:48 BUN 43 mg/dL (7-23) H 11/09/18 03:52 Creatinine 1.7 mg/dL (0.6-1.0) H 11/09/18 03:52 POC Creatinine 2.0 mg/dL (0.6-1.0) H 11/08/18 20:48 Estimated GFR 29 11/09/18 03:52 Glucose 112 mg/dL (70-100) H 11/09/18 03:52 POC Glucose 103 mg/dL (70-100) H 11/08/18 20:48 Calcium 13.7 mg/dL (8.5-10.4) H* 11/09/18 13:00 Ionized Calcium 1.84 MMOL/L (1.12-1.30) H* 11/09/18 03:52 Phosphorus 4.0 mg/dL (2.5-4.5) 11/09/18 13:00 Magnesium 2.2 mg/dL (1.6-2.3) 11/09/18 03:52 Total Bilirubin 0.9 mg/dL (0.1-1.4) 11/08/18 16:49 Conjugated Bilirubin 0.4 mg/dL (0.0-0.5) 11/08/18 16:49 Unconjugated Bilirubin 0.5 mg/dL (0.0-1.1) 11/08/18 16:49 AST 48 IU/L (14-46) H 11/08/18 16:49 ALT 42 IU/L (9-52) 11/08/18 16:49 Alkaline Phosphatase 99 IU/L (38-126) 11/08/18 16:49 Total Protein 7.2 g/dL (6.3-8.2) 11/08/18 16:49 Albumin 4.6 g/dL (3.5-5.0) 11/08/18 16:49 25-OH Vitamin D Total 47.8 ng/mL (30.0-100.0) 11/08/18 20:40 TSH 1.680 uIU/mL (0.465-4.680) 11/08/18 20:40 Free T4 2.43 ng/dL (0.59-2.19) H 11/08/18 16:49 PTH Intact < 3.4 pg/mL (10.8-79.4) L 11/08/18 20:40 Calcium (PTH Intact) 14.7 mg/dL (8.5-10.4) H* 11/08/18 20:40 Creat (PTH Intact) 1.6 mg/dL (0.6-1.0) H 11/08/18 20:40 Phosph (PTH Intact) 3.9 mg/dL (2.5-4.5) 11/08/18 20:40 Specimen Hemolysis 116 11/08/18 16:49 Urine Color COLORLESS 11/08/18 23:45 Urine Appearance CLEAR 11/08/18 23:45 Urine pH 8.0 (5.0-7.5) H 11/08/18 23:45 Ur Specific [place] 1.004 (1.002-1.030) 11/08/18 23:45 Urine Protein NEGATIVE (NEGATIVE) 11/08/18 23:45 Urine Ketones NEGATIVE (NEGATIVE) 11/08/18 23:45 Urine Blood 1+ (NEGATIVE) H 11/08/18 23:45 Urine Nitrate NEGATIVE (NEGATIVE) 11/08/18 23:45 Urine Bilirubin NEGATIVE (NEGATIVE) 11/08/18 23:45 Urine Urobilinogen NEGATIVE EU (0.2-1.0) 11/08/18 23:45 Ur Leukocyte Esterase TRACE (NEGATIVE) H 11/08/18 23:45 Urine RBC 25-50 /hpf (0-3) H 11/08/18 23:45 Urine WBC 10-15 /hpf (0-3) H 11/08/18 23:45 Ur Epithelial Cells TRACE /lpf (NONE-1+) 11/08/18 23:45 Urine Bacteria TRACE /hpf (NONE SEEN) H 11/08/18 23:45 Urine Glucose NEGATIVE (NEGATIVE) 11/08/18 23:45 Assessment & Plan Assessment: Hypercalcemia (Acute) Hypokalemia (Acute) Renal insufficiency (Acute)
[2018-11-09] MEDS: POLYETHYLENE GLYCOL 3350 17 GM PKT PO PRN (16:21)
[2018-11-09] MEDS: WARFARIN SODIUM 2 MG TAB PO SCH (16:21)
[2018-11-09] MEDS: SENNOSIDES/DOCUSATE SODIUM TAB PO SCH (20:13)
[2018-11-09] MEDS: FAMOTIDINE 20 MG TAB PO SCH (20:13)
[2018-11-09] MEDS: BISACODYL 10 MG SUPP PR PRN (23:30)
[2018-11-10] MEDS: hydrALAZINE 25 MG TAB PO PRN ×2 (02:13→23:25)
[2018-11-10] MEDS: NS 1,000 ML IV SCH ×2 (03:33→20:18)
[2018-11-10] MEDS: LEVOTHYROXINE 112 MCG TAB PO SCH (05:54)
[2018-11-10] MEDS ORDERED: amLODIPine BESYLATE 5 MG TAB PO SCH (09:00)
[2018-11-10] MEDS: VERAPAMIL ER 120 MG TAB PO SCH ×2 (10:12→20:18)
[2018-11-10] MEDS: ROSUVASTATIN CALCIUM 10 MG TAB PO SCH (10:12)
[2018-11-10] MEDS: POTASSIUM CL 10 MEQ TAB PO SCH (10:12)
[2018-11-10] MEDS: MULTIVITAMINS 1 EACH TAB PO SCH (10:13)
[2018-11-10] MEDS: SENNOSIDES/DOCUSATE SODIUM TAB PO SCH ×2 (10:13→20:18)
--- NOTE | 2018-11-10 10:22 | HOSPPROG ---
Hospitalist Progress Note Assessment/Plan: 78 yo F with hx of primary hyperparathyroid s/p parathyroidectomy presenting with hypercalcemia in setting of calcitriol/calcium supplementation # severe hypercalcemia: in the setting of prolonged administration of calcitriol and calcium post parathyroidectomy with apparent issues previously discontinuing these meds and hypocalcemia developing. - Continue holding calcitriol and calcium - Continue IVF, will decrease rate to 150/hr - S/p 20 mg IVP Lasix on 11/09 - S/p Calcitonin on 11/08 with repeat Ca 14.5, redosed with Calcitonin as well as dose of Zoledronic Acid on 11/09 - Endocrinology consulted, recommending checking PTH rP # COREY- Cr increased to 1.9 on admission, baseline 0.8, in setting of hypercalcemia, repeat 1.7 this AM, will continue IVF, check FENa, renal U/S, continue to monitor BMP, I/O, avoid nephrotoxic agents, will discuss with nephrology # primary hyperparathyroidism: s/p parathyroidectomy and reimplantation of PT gland in forearm, PTH level is low, followed by Dr. Wong, endocrinology consult as above # Elevated BP: BP as high as 211/98 on admission, 199/78 this AM, not currently on home BP meds, adding Amlodipine 5 mg qd this morning, PRN Hydralazine for SBP >180 # hypothyroid: s/p thyroidectomy, TSH wnl, Ft4 slightly high, continue home meds # paroxysmal a fib: currently in SR, on chronic AC, INR of 2 last week, repeat INR 2.15, continue warfarin # hypokalemia: with profound drop that was thought to be perhaps an error but confirmed on multiple checks and on istat, 3.8 this AM # osteoporosis: on prolia as an op, zoledronic acid as above # IP status given severe electrolyte abnormalities Subjective: Pt reports mild improvement in symptoms, still weak Objective: Vital Signs Temp Pulse Resp BP Pulse Ox 36.7 C 72 20 164/104 H 90 L 11/10/18 07:08 11/10/18 07:08 11/10/18 07:08 11/10/18 07:08 11/10/18 07:08 Laboratory Results 11/09/18 03:52 11/10/18 03:34 11/09/18 11/10/18 11/11/18 05:59 05:59 05:59 Intake Total 2785 4900 Output Total 1800 3230 150 Balance 985 1670 -150 PT 23.0 SEC (12.0-15.0) H 11/09/18 03:52 INR 2.15 (0.83-1.16) H 11/09/18 03:52 - Physical Exam Constitutional: chronically ill appearing Eyes: PERRL Ears, Nose, Mouth, Throat: moist mucous membranes Cardiovascular: regular rate and rhythym Respiratory: no respiratory distress Gastrointestinal: soft, non-tender abdomen Skin: warm Musculoskeletal: generalized weakness Neurologic: AAOx3 Psychiatric: interacting appropriately ICD10 Worksheet Patient Problems: Problems Problem Status Onset Hypercalcemia Acute Hypokalemia Acute Renal insufficiency Acute Abdominal pain Acute Diarrhea Acute Hemarthrosis involving knee joint Acute Hematoma Acute Hernia Acute Localized osteoarthritis of right knee Acute Parathyroid adenoma Acute Primary osteoarthritis of left knee Acute Supratherapeutic INR Acute
[2018-11-10] MEDS: BISACODYL 10 MG SUPP PR PRN (10:59)
[2018-11-10] MEDS ORDERED: POTASSIUM CL 10 MEQ TAB PO ONE ×3 (13:24→23:35)
--- NOTE | 2018-11-10 13:40 | PDCONSULT ---
Sales Support Rep Note: Renal Consult Note - Chief Complaint COREY - History of Present Illness The patient is a 78 h/o F with a known h/o HTN, atrial fibrillation, and hyperparathyroidism s/p parathyroidectomy with re-implantation of one gland into her arm this past August who presented with weakness to the ED yesterday and was found to have hypercalcemia to >14mg/dL with COREY. 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 She notes that she has had some muscle aches, confusion, as well as severe weakness that causes difficulty with ambulation. She also states that she has had trouble with urination, especially today and is unable to "get the urine out." She denies any use of NSAIDs b/c she is on blood thinners. She denies other ROS with the exception of hearing issues. - Allergies/Home Medication List oxycodone HCl [From OxyContin] Allergy (Intermediate, Verified 11/08/18 16:55) Vomiting cephalexin [Cephalexin] Allergy (Verified 11/08/18 16:55) Rash and fever cephalexin monohydrate [From Keflex] Allergy (Verified 11/08/18 16:55) Rash codeine Allergy (Verified 11/08/18 16:55) passes out, n/v diazepam [From Valium] Allergy (Verified 11/08/18 16:55) GI meperidine HCl [From Demerol] Allergy (Verified 11/08/18 16:55) GI propoxyphene Allergy (Verified 11/08/18 16:55) n/v Home Medications: Verapamil ER [Calan SR/ER 120MG (*)] 120 mg PO BID 12/21/14 [Last Taken ] traMADol [Ultram 50 mg (*)] 100 mg PO BID PRN 02/14/15 [Last Taken 11/11/15] Furosemide [Lasix 20 MG (*)] 20 mg PO BID@,10/15/15 [Last Taken 11/10/15] Cholecalciferol Vit D3 [Vitamin D3 (*)] 5,000 units PO DAILY 06/21/16 [Last Taken Unknown] C/E/Zn/Cu/OM3/DHA/EPA/LUT/ZEAX [Preservision Areds 2 Softgel] 1 each PO DAILY [Last Taken Unknown] Calcitriol [Calcitriol (*)] 0.5 mcg PO DAILY 11/08/18 [Last Taken Unknown] Calcium Citrate/Vitamin D3 [Citracal-Vit D 200 mg-250 Tab] 1 each PO DAILY 11/08 [Last Taken Unknown] Denosumab [Prolia] 60 mg SQ Q180D 11/08/18 [Last Taken 04/30/18] Famotidine [Pepcid] 40 mg PO HS 11/08/18 [Last Taken Unknown] Herbals/Supplements -Info Only 1 ea PO DAILY 11/08/18 [Last Taken Unknown] Levothyroxine [Synthroid 112 mcg (*)] 112 mcg PO DAILY06 11/08/18 [Last Taken Unknown] Multivitamins [Multivitamin (*)] 1 each PO DAILY 11/08/18 [Last Taken Unknown] Potassium Cl [Klor-Con] 10 meq PO DAILY 11/08/18 [Last Taken Unknown] Rosuvastatin Calcium 5 mg PO DAILY 11/08/18 [Last Taken Unknown] Warfarin Sodium [Coumadin 2MG (*)] 2 mg PO SUMOTUWETHSA@16 11/08/18 [Last Taken 11/07/18] Warfarin Sodium [Coumadin 3MG (*)] 3 mg PO FR@16 11/08/18 [Last Taken Unknown] - Past Medical History atrial fibrillation (on chronic AC), GERD, hypertension, hyperlipidemia, primary hyperparathyroidism. multinodular goiter. osteoporosis. hiatal hernia. B tka - Surgical History Reports: hernia repair (hiatal ), spinal surgery (cervical fusion), thyroidectomy. parathyroidectomy and reimplantation to arm - Family History Positive for: non-pertinent - Social History Smoking Status: Former smoker Alcohol Use: None Drug Use: None Additional social history: lives independently Review of Systems:10pt was reviewed & negative except for what was stated in HPI & below Objective: Temp Pulse Resp BP Pulse Ox 36.5 C 81 16 174/125 H 95 11/10/18 12:00 11/10/18 12:00 11/10/18 12:00 11/10/18 12:00 11/10/18 12:00 Physical exam: Gen: a+o, no distress Neck: supple,surgical scar HEENT: EOMI, MMM CV: irregular, no murmurs RESP: CTA b/l ABD: soft, NT, ND EXT: trace edema NEURO: Non-focal SKIN: no rashes or lesions WBC 15.96 10^3/uL (3.80-9.50) H 11/09/18 03:52 RBC 4.94 10^6/uL (4.18-5.33) 11/09/18 03:52 Hgb 13.6 g/dL (12.6-16.3) 11/09/18 03:52 POC Hgb 13.3 gm/dL (12.6-16.3) 11/08/18 20:48 Hct 43.2 % (38.0-47.0) 11/09/18 03:52 POC Hct 39 % (38-47) 11/08/18 20:48 MCV 87.4 fL (81.5-99.8) 11/09/18 03:52 MCH 27.5 pg (27.9-34.1) L 11/09/18 03:52 MCHC 31.5 g/dL (32.4-36.7) L 11/09/18 03:52 RDW 14.9 % (11.5-15.2) 11/09/18 03:52 Plt Count 297 10^3/uL (150-400) 11/09/18 03:52 MPV 10.3 fL (8.7-11.7) 11/09/18 03:52 Neut % (Auto) 89.8 % (39.3-74.2) H 11/09/18 03:52 Lymph % (Auto) 4.9 % (15.0-45.0) L 11/09/18 03:52 [place] % (Auto) 4.6 % (4.5-13.0) 11/09/18 03:52 Eos % (Auto) 0.0 % (0.6-7.6) L 11/09/18 03:52 Baso % (Auto) 0.3 % (0.3-1.7) 11/09/18 03:52 Nucleat RBC Rel Count 0.0 % (0.0-0.2) 11/09/18 03:52 Absolute Neuts (auto) 14.33 10^3/uL (1.70-6.50) H 11/09/18 03:52 Absolute Lymphs (auto) 0.79 10^3/uL (1.00-3.00) L 11/09/18 03:52 Absolute Monos (auto) 0.74 10^3/uL (0.30-0.80) 11/09/18 03:52 Absolute Eos (auto) 0.00 10^3/uL (0.03-0.40) L 11/09/18 03:52 Absolute Basos (auto) 0.04 10^3/uL (0.02-0.10) 11/09/18 03:52 Absolute Nucleated RBC 0.00 10^3/uL (0-0.01) 11/09/18 03:52 Immature Gran % 0.4 % (0.0-1.1) 11/09/18 03:52 Immature Gran # 0.06 10^3/uL (0.00-0.10) 11/09/18 03:52 PT 23.0 SEC (12.0-15.0) H 11/09/18 03:52 INR 2.15 (0.83-1.16) H 11/09/18 03:52 Puncture Site Not Reported 11/08/18 18:30 Patient Temperature 37.0 DEGREES 11/08/18 18:30 VBG pH 7.51 (7.31-7.42) H 11/08/18 18:30 VBG HCO3 28 mEQ/L (22-26) H 11/08/18 18:30 VBG Total CO2 29 mEq/L (21-27) H 11/08/18 18:30 VBG O2 Saturation 99 % (65-75) H 11/08/18 18:30 VBG Base Excess 5.2 mEq/L (-2.5-2.5) H 11/08/18 18:30 Mixed VBG pCO2 36 mmHg (40-44) L 11/08/18 18:30 Mixed VBG pO2 193 mmHG (35-40) H 11/08/18 18:30 POC Sodium 140 mEq/L (135-145) 11/08/18 20:48 Sodium 143 mEq/L (135-145) 11/10/18 03:34 POC Potassium 3.2 mEq/L (3.3-5.0) L 11/08/18 20:48 Potassium 3.8 mEq/L (3.5-5.2) 11/10/18 03:34 POC Chloride 101 mEq/L (97-110) 11/08/18 20:48 Chloride 115 mEq/L (97-110) H 11/10/18 03:34 Carbon Dioxide 21 mEq/l (22-31) L 11/10/18 03:34 POC Total CO2 31 mEq/L (22-31) 11/08/18 20:48 Anion Gap 7 mEq/L (6-14) 11/10/18 03:34 POC BUN 46 mg/dL (7-23) H 11/08/18 20:48 BUN 39 mg/dL (7-23) H 11/10/18 03:34 Creatinine 1.7 mg/dL (0.6-1.0) H 11/10/18 03:34 POC Creatinine 2.0 mg/dL (0.6-1.0) H 11/08/18 20:48 Estimated GFR 29 11/10/18 03:34 Glucose 116 mg/dL (70-100) H 11/10/18 03:34 POC Glucose 103 mg/dL (70-100) H 11/08/18 20:48 Calcium 11.8 mg/dL (8.5-10.4) H 11/10/18 03:34 Ionized Calcium 1.84 MMOL/L (1.12-1.30) H* 11/09/18 03:52 Phosphorus 2.5 mg/dL (2.5-4.5) 11/10/18 03:34 Magnesium 2.0 mg/dL (1.6-2.3) 11/10/18 03:34 Total Bilirubin 0.9 mg/dL (0.1-1.4) 11/08/18 16:49 Conjugated Bilirubin 0.4 mg/dL (0.0-0.5) 11/08/18 16:49 Unconjugated Bilirubin 0.5 mg/dL (0.0-1.1) 11/08/18 16:49 AST 48 IU/L (14-46) H 11/08/18 16:49 ALT 42 IU/L (9-52) 11/08/18 16:49 Alkaline Phosphatase 99 IU/L (38-126) 11/08/18 16:49 Total Protein 7.2 g/dL (6.3-8.2) 11/08/18 16:49 Albumin 4.6 g/dL (3.5-5.0) 11/08/18 16:49 25-OH Vitamin D Total 47.8 ng/mL (30.0-100.0) 11/08/18 20:40 TSH 1.680 uIU/mL (0.465-4.680) 11/08/18 20:40 Free T4 2.43 ng/dL (0.59-2.19) H 11/08/18 16:49 PTH Intact < 3.4 pg/mL (10.8-79.4) L 11/08/18 20:40 Calcium (PTH Intact) 14.7 mg/dL (8.5-10.4) H* 11/08/18 20:40 Creat (PTH Intact) 1.6 mg/dL (0.6-1.0) H 11/08/18 20:40 Phosph (PTH Intact) 3.9 mg/dL (2.5-4.5) 11/08/18 20:40 Specimen Hemolysis 116 11/08/18 16:49 Urine Color COLORLESS 11/08/18 23:45 Urine Appearance CLEAR 11/08/18 23:45 Urine pH 8.0 (5.0-7.5) H 11/08/18 23:45 Ur Specific [place] 1.004 (1.002-1.030) 11/08/18 23:45 Urine Protein NEGATIVE (NEGATIVE) 11/08/18 23:45 Urine Ketones NEGATIVE (NEGATIVE) 11/08/18 23:45 Urine Blood 1+ (NEGATIVE) H 11/08/18 23:45 Urine Nitrate NEGATIVE (NEGATIVE) 11/08/18 23:45 Urine Bilirubin NEGATIVE (NEGATIVE) 11/08/18 23:45 Urine Urobilinogen NEGATIVE EU (0.2-1.0) 11/08/18 23:45 Ur Leukocyte Esterase TRACE (NEGATIVE) H 11/08/18 23:45 Urine RBC 25-50 /hpf (0-3) H 11/08/18 23:45 Urine WBC 10-15 /hpf (0-3) H 11/08/18 23:45 Ur Epithelial Cells TRACE /lpf (NONE-1+) 11/08/18 23:45 Urine Bacteria TRACE /hpf (NONE SEEN) H 11/08/18 23:45 Urine Glucose NEGATIVE (NEGATIVE) 11/08/18 23:45 Imaging: Renal US pending Assessment/Plan: The patient is a 78 y/o F with a known h/o primary hyperparathyroidism and previous hypocalcemia who now presents with hypercalcemia 2/2 to likely dehydration and oversupplementation with appropriately suppressed PTH as well as COREY which may be pre-renal vs ATN 2/2 to hypercalcemia. In addition, she has hematuria and WBC's on UA and may have infection vs alternate etiology. Finally, the patient has been very hypertensive likely 2/2 to volume resuscitation since admission and may have hemodynamic component. COREY -baseline Cr 0.8mg/dL -up to 2.0 on admission and improved to 1.7mg/dL with fluids today -urine studies and renal US pending -sent urine culture -place figueroa -will send SPEP/UPEP, FLC -continue IVF but decrease rate, and may consider bisphosphonate vs calcitonin if not normalizing by tomorrow -no indication for dialysis -continue to monitor HTN/vol -normally on diuretic, held 2/2 to hypercalcemia -added amlodipine, increased to 10mg daily -continue hydralazine po prn SBP>160 -on home verapamil -switched diet to low sodim Hypercalcemia -PTH<5, vitamin D>40, PTHrp and 1,25 pending -serologies as above -monitor ionized -hold d3 supplement, calcitriol Metabolic acidosis -initially contraction alkalosis -NAG likely 2/2 to IVF -continue to monitor Consult appreciated, will continue to follow. Please contact if ?'s. #[phone]. Rajeev Lenz, DO [facility]
[2018-11-10] MEDS: WARFARIN SODIUM 2 MG TAB PO SCH (18:13)
[2018-11-10] MEDS: FAMOTIDINE 20 MG TAB PO SCH (20:19)
[2018-11-11] MEDS: NS 1,000 ML IV SCH (05:43)
[2018-11-11] MEDS: LEVOTHYROXINE 112 MCG TAB PO SCH (05:43)
[2018-11-11] MEDS ORDERED: POTASSIUM CL 10 MEQ TAB PO ONE ×3 (07:10→20:59)
[2018-11-11] MEDS ORDERED: POTASSIUM CL 20 MEQ TAB PO ONE ×2 (08:00→14:00)
[2018-11-11] MEDS: SENNOSIDES/DOCUSATE SODIUM TAB PO SCH ×2 (08:47→21:03)
[2018-11-11] MEDS: MULTIVITAMINS 1 EACH TAB PO SCH (08:47)
[2018-11-11] MEDS: VERAPAMIL ER 120 MG TAB PO SCH ×2 (08:48→20:57)
[2018-11-11] MEDS: hydrALAZINE 25 MG TAB PO PRN (08:48)
[2018-11-11] MEDS: ROSUVASTATIN CALCIUM 10 MG TAB PO SCH (08:48)
--- NOTE | 2018-11-11 10:36 | SOAPPROG ---
SOAP Progress Note Assessment/Plan: Assessment/Plan: COREY: baseline Cr around 0.8, up to 2 on presentation and now 1.6. Likely caused by hypercalcemia, which causes volume depletion as well as vascular restriction. She is nonoliguric, lytes ok. - No need for hD. - Figueroa catheter placed, noted that there is concern for cystic mass on bladder on US. Would hold of on contrasted study but could do a CT without contrast for further investigation. - Ok to d/c IVFs. - Will continue to monitor. - Avoid hypotension and nephrotoxins. Hypercalcemia: calcium now back in normal range today. - Ok to D/C IVFs today and monitor. - SPEP, UPEP and PTHrP pending. - Would continue daily ionized calcium. HTN: BP remains uncontrolled, amlodipine increased today, will continue to monitor. Hypokalemia: K 3.1, will replace and continue to monitor. Subjective: No acute events overnight. Pt states she feels better with figueroa catheter in, reportedly had 500ml urinary retention prior to placement. She is having some swelling in legs and feels a bit shakey overall. Objective: Vital Signs Temp Pulse Resp BP Pulse Ox 37.0 C 83 18 161/115 H 96 11/11/18 08:00 11/11/18 08:00 11/11/18 08:00 11/11/18 08:00 11/11/18 08:00 Laboratory Results 11/09/18 03:52 11/11/18 03:32 11/10/18 11/11/18 11/12/18 05:59 05:59 05:59 Intake Total 4900 1595 Output Total 3230 1526 Balance 1670 69 PT 23.0 SEC (12.0-15.0) H 11/09/18 03:52 INR 2.15 (0.83-1.16) H 11/09/18 03:52 General: alert and oriented, no acute distress Eyes: EOMI, PERRL OP: clear CV: RRR Resp: nonlabored respirations on RA Abd: Soft, NT/ND Ext: +1 edema BLE Neuro: CN II-XII grossly intact, no asterixis Psych: cooperative ICD10 Worksheet Patient Problems: Problems Problem Status Onset Hypercalcemia Acute Hypokalemia Acute Renal insufficiency Acute Abdominal pain Acute Diarrhea Acute Hemarthrosis involving knee joint Acute Hematoma Acute Hernia Acute Localized osteoarthritis of right knee Acute Parathyroid adenoma Acute Primary osteoarthritis of left knee Acute Supratherapeutic INR Acute
[2018-11-11] MEDS: POTASSIUM CL 10 MEQ TAB PO SCH (10:49)
--- NOTE | 2018-11-11 11:39 | ASMTCMCOM ---
CM Note CM Note Notes: Pts case discussed in tx rounds. CM met w/ pt and pts POAs for dispo planning. Therapies are recommending SNF. Referrals sent to [facility] ([facility]) and [facility] in [place]. Referrals sent. CM to follow. Plan: SNF Date Signed: 11/11/2018 11:35 AM Electronically Signed By:MEAGHAN Campuzano
--- NOTE | 2018-11-11 13:39 | ASMTCMCOM ---
CM Note CM Note Notes: [facility] not have any beds available. [facility] able to accept. Both of pts MDPOA's are in agreement for pt to go to SNF at [facility]. [facility] has started getting auth. CM to follow. Plan: [facility] SNF Date Signed: 11/11/2018 01:31 PM Electronically Signed By:MEAGHAN Campuzano
--- NOTE | 2018-11-11 14:05 | HOSPPROG ---
Hospitalist Progress Note Assessment/Plan: 78 yo F with hx of primary hyperparathyroid s/p parathyroidectomy presenting with hypercalcemia in setting of calcitriol/calcium supplementation # severe hypercalcemia: in the setting of prolonged administration of calcitriol and calcium post parathyroidectomy with apparent issues previously discontinuing these meds and hypocalcemia developing. - S/p Calcitonin on 11/08 with repeat Ca 14.5, redosed with Calcitonin as well as dose of Zoledronic Acid on 11/09, Ca 9.9 this AM - Continue holding calcitriol and calcium - Will d/c IVF - S/p 20 mg IVP Lasix on 11/09 - Endocrinology consulted, recommending checking PTH rP, SPEP/UPEP which are currently pending # COREY- Cr increased to 1.9 on admission, baseline 0.8, in setting of hypercalcemia, repeat 1.6 this AM - S/p IVF with no improvement - Pt was retaining urine as of yesterday, s/p figueroa insertion - U/S showed cystic bladder mass vs. fluid filled bowel loops, CT w IVC recommended, will perform when COREY resolving - Continue to monitor BMP, I/O, avoid nephrotoxic agents, will discuss with nephrology # primary hyperparathyroidism: s/p parathyroidectomy and reimplantation of PT gland in forearm, PTH level is low, followed by Dr. Wong, endocrinology consult as above # Elevated BP: BP as high as 211/98 on admission, not currently on home BP meds - Added Amlodipine 10 mg qd, PRN Hydralazine for SBP >180 # hypothyroid: s/p thyroidectomy, TSH wnl, Ft4 slightly high, continue home meds # paroxysmal a fib: currently in SR, on chronic AC, INR of 2 last week, repeat INR 2.15, continue warfarin # hypokalemia: with profound drop that was thought to be perhaps an error but confirmed on multiple checks and on istat, 3.8 this AM # osteoporosis: on prolia as an op, zoledronic acid as above # IP status given severe electrolyte abnormalities Subjective: Pt reports some improvement in weakness this AM Objective: Vital Signs Temp Pulse Resp BP Pulse Ox 36.8 C 84 20 138/73 H 95 11/11/18 13:17 11/11/18 13:17 11/11/18 13:17 11/11/18 13:17 11/11/18 13:17 Laboratory Results 11/09/18 03:52 11/11/18 03:32 11/10/18 11/11/18 11/12/18 05:59 05:59 05:59 Intake Total 4900 1595 500 Output Total 3230 1526 Balance 1670 69 500 PT 23.0 SEC (12.0-15.0) H 11/09/18 03:52 INR 2.15 (0.83-1.16) H 11/09/18 03:52 - Physical Exam Constitutional: chronically ill appearing Eyes: PERRL Ears, Nose, Mouth, Throat: moist mucous membranes Cardiovascular: regular rate and rhythym Respiratory: no respiratory distress Gastrointestinal: normoactive bowel sounds Genitourinary: figueroa in urethra Skin: warm Musculoskeletal: generalized weakness Neurologic: AAOx3 Psychiatric: interacting appropriately ICD10 Worksheet Patient Problems: Problems Problem Status Onset Hypercalcemia Acute Hypokalemia Acute Renal insufficiency Acute Abdominal pain Acute Diarrhea Acute Hemarthrosis involving knee joint Acute Hematoma Acute Hernia Acute Localized osteoarthritis of right knee Acute Parathyroid adenoma Acute Primary osteoarthritis of left knee Acute Supratherapeutic INR Acute
[2018-11-11] MEDS: WARFARIN SODIUM 2 MG TAB PO SCH (16:56)
[2018-11-11] MEDS: FAMOTIDINE 20 MG TAB PO SCH (20:57)
[2018-11-12 03:59] LABS: PLATELET COUNT 214 10^3/uL (150-400)
[2018-11-12 04:21] LABS: INR 3.72 (0.83-1.16); PROTIME(PATIENT) 34.9 SEC (12.0-15.0)
[2018-11-12] MEDS: LEVOTHYROXINE 112 MCG TAB PO SCH (06:40)
[2018-11-12] MEDS ORDERED: POTASSIUM CL 10 MEQ TAB PO ONE ×2 (07:33→19:40)
[2018-11-12] MEDS ORDERED: MAGNESIUM SULF 1 GM/DEXTROSE 100 ML IV ONE (07:35)
[2018-11-12] MEDS: ROSUVASTATIN CALCIUM 10 MG TAB PO SCH (08:21)
[2018-11-12] MEDS: MULTIVITAMINS 1 EACH TAB PO SCH (08:21)
[2018-11-12] MEDS: VERAPAMIL ER 120 MG TAB PO SCH ×2 (08:21→20:46)
[2018-11-12] MEDS: SENNOSIDES/DOCUSATE SODIUM TAB PO SCH ×2 (08:36→20:45)
--- NOTE | 2018-11-12 11:42 | SOAPPROG ---
SOAP Progress Note Assessment/Plan: Assessment/Plan: 78 y/o F with COREY 2/2 to hypercalcemia found to have possible cystic mass on bladder. COREY: -baseline Cr around 0.8, up to 2 on presentation and now stable at 1.6 -Likely caused by hypercalcemia, which causes volume depletion as well as vascular restriction -no indication for HD -Chung catheter placed, good UO -noted that there is concern for cystic mass on bladder on US. Would hold of on contrasted study but could do a CT without contrast for further investigation as patient was having issues urinating prior to admission - consider urology consult - Will continue to monitor - Avoid hypotension and nephrotoxins - will obtain f/u with [facility] in 4-6 weeks, needs labs per PCP as outpatient Hypercalcemia: - ca down to 9 today - continue to hold IVF - SPEP, UPEP and PTHrP pending. - Would continue daily ionized calcium. HTN: BP's improved. Cont verapamil, amlodipine. Hypokalemia: Improved, replete prn 11/12/18 11:42 Subjective: Making good UO. Feeling a little better. Objective: Vital Signs Temp Pulse Resp BP Pulse Ox 35.9 C L 61 14 117/71 97 11/12/18 07:38 11/12/18 07:38 11/12/18 07:38 11/12/18 07:38 11/12/18 07:38 Laboratory Results 11/12/18 03:32 11/12/18 03:32 11/11/18 11/12/18 11/13/18 05:59 05:59 05:59 Intake Total 1595 1947 100 Output Total 1526 1825 Balance 69 122 100 PT 34.9 SEC (12.0-15.0) H 11/12/18 03:32 INR 3.72 (0.83-1.16) H 11/12/18 03:32 Physical Exam - Physical Exam General Appearance: WD/WN, alert, no apparent distress EENT: PERRL/EOMI Neck: non-tender, supple Respiratory: chest non-tender, lungs clear Cardiac/Chest: normal peripheral pulses, regular rate, rhythm Abdomen: normal bowel sounds, non-tender, soft Skin: warm/dry, pallor Extremities: normal range of motion, non-tender Neuro/Psych: no motor/sensory deficits, normal mood/affect ICD10 Worksheet Patient Problems: Problems Problem Status Onset Hypercalcemia Acute Hypokalemia Acute Renal insufficiency Acute Abdominal pain Acute Diarrhea Acute Hemarthrosis involving knee joint Acute Hematoma Acute Hernia Acute Localized osteoarthritis of right knee Acute Parathyroid adenoma Acute Primary osteoarthritis of left knee Acute Supratherapeutic INR Acute
[2018-11-12] MEDS ORDERED: PROTOCOL K PHOSPHATE 1 DOSE IV PRN (16:00)
[2018-11-12] MEDS ORDERED: K PHOS 15 MMOL in D5W 250 ML IV ONE (18:00)
[2018-11-12] MEDS: FAMOTIDINE 20 MG TAB PO SCH (20:46)
--- NOTE | 2018-11-12 20:53 | HOSPPROG ---
Hospitalist Progress Note Assessment/Plan: 78 yo F with hx of primary hyperparathyroid s/p parathyroidectomy presenting with hypercalcemia in setting of calcitriol/calcium supplementation # severe hypercalcemia: in the setting of prolonged administration of calcitriol and calcium post parathyroidectomy with apparent issues previously discontinuing these meds and hypocalcemia developing. - S/p Calcitonin on 11/08 with repeat Ca 14.5, redosed with Calcitonin as well as dose of Zoledronic Acid on 11/09 - Continue holding calcitriol and calcium - S/p 20 mg IVP Lasix on 11/09 - Endocrinology consulted, recommending checking PTH rP, SPEP/UPEP which are currently pending # COREY- Cr increased to 1.9 on admission, baseline 0.8, in setting of hypercalcemia, repeat 1.6 this AM - S/p IVF with no improvement - Pt was retaining urine as of yesterday, s/p figueroa insertion - U/S showed cystic bladder mass vs. fluid filled bowel loops, CT w IVC recommended, will perform when COREY resolving - Continue to monitor BMP, I/O, avoid nephrotoxic agents, will discuss with nephrology # primary hyperparathyroidism: s/p parathyroidectomy and reimplantation of PT gland in forearm, PTH level is low, followed by Dr. Wong, endocrinology consult as above # Elevated BP: BP as high as 211/98 on admission, not currently on home BP meds - Added Amlodipine 10 mg qd, PRN Hydralazine for SBP >180 # hypothyroid: s/p thyroidectomy, TSH wnl, Ft4 slightly high, continue home meds # paroxysmal a fib: currently in SR, on chronic AC, INR of 2 last week, repeat INR 2.15, continue warfarin # osteoporosis: on prolia as an op, zoledronic acid as above Subjective: no new complaints. Objective: Vital Signs Temp Pulse Resp BP Pulse Ox 36.6 C 74 18 100/68 96 11/12/18 15:54 11/12/18 15:54 11/12/18 15:54 11/12/18 15:54 11/12/18 15:54 Microbiology 11/10/18 13:40 Urine Culture - Final Urine,Clean Catch Laboratory Results 11/12/18 03:32 11/12/18 19:05 11/11/18 11/12/18 11/13/18 05:59 05:59 05:59 Intake Total 1595 1947 632 Output Total 6692 9345 1050 Balance 69 122 -418 PT 34.9 SEC (12.0-15.0) H 11/12/18 03:32 INR 3.72 (0.83-1.16) H 11/12/18 03:32 Esophogram - negative Old chart reviewed - no ct abd since 2016 - Physical Exam Constitutional: no apparent distress, appears nourished, not in pain Cardiovascular: regular rate and rhythym, no murmur, rub, or gallop Respiratory: no respiratory distress, no rales or rhonchi, clear to auscultation Gastrointestinal: normoactive bowel sounds, soft, non-tender abdomen, no palpable masses Skin: no rashes or abrasions, no fluctuance, no induration Neurologic: AAOx3, sensation intact bilaterally Psychiatric: interacting appropriately, not anxious, not encephalopathic, thought process linear ICD10 Worksheet Patient Problems: Problems Problem Status Onset Parathyroid adenoma Acute Hemarthrosis involving knee joint Acute Supratherapeutic INR Acute Localized osteoarthritis of right knee Acute Primary osteoarthritis of left knee Acute Abdominal pain Acute Hematoma Acute Hernia Acute Diarrhea Acute Hypercalcemia Acute Renal insufficiency Acute Hypokalemia Acute
[2018-11-13 04:56] LABS: INR 3.23 (0.83-1.16); PROTIME(PATIENT) 31.3 SEC (12.0-15.0)
[2018-11-13] MEDS: LEVOTHYROXINE 112 MCG TAB PO SCH (06:27)
[2018-11-13] MEDS ORDERED: MAGNESIUM SULF 1 GM/DEXTROSE 100 ML IV ONE (07:58)
[2018-11-13] MEDS ORDERED: POTASSIUM CL 10 MEQ TAB PO ONE (07:59)
[2018-11-13] MEDS: ROSUVASTATIN CALCIUM 10 MG TAB PO SCH (08:36)
[2018-11-13] MEDS: MULTIVITAMINS 1 EACH TAB PO SCH (08:36)
[2018-11-13] MEDS: VERAPAMIL ER 120 MG TAB PO SCH ×2 (08:39→20:24)
[2018-11-13] MEDS: SENNOSIDES/DOCUSATE SODIUM TAB PO SCH ×2 (08:49→20:24)
--- NOTE | 2018-11-13 13:59 | ASMTCMCOM ---
CM Note CM Note Notes: 11/13/2018 Case Management Note Discussed during rounds. Gloria LOPEZ present. Per previous case management report, pt is open with [facility]. Phone call from Betsy with [employer]. Authorization has been obtained from [employer]. Met w/pt and JOHN to discuss discharge needs. Pt is interested in Palliative Care. Notified MD and [facility] palliative team members. Pt has quarterly visits from [facility] House Call program from RN. Pt lives independently in her condo with help from Gloria as needed. Case Management d/c poc: [facility] when medically ready. Case Management to follow. Date Signed: 11/13/2018 01:58 PM Electronically Signed By:Shilpa Vasques RN
--- NOTE | 2018-11-13 14:08 | SOAPPROG ---
SOAP Progress Note Assessment/Plan: Assessment: #COREY -likely due to hyperCa, Cr improving down to 1.4 today #hypercalcemia severe- improved -in setting of prior parathyroidectomy and reimplantation with Ca/calcitriol as outpt prior to admit -PTH appropriately suppressed <3.4 -PTHrP and SPEP negative -did receive zometa so need to monitor for continued drop in Ca- follow labs closely #mild Hyokalemia -repleted #bladder mass -needs urology input and further imaging-- discussed with hospitalist. Prefer to avoid contrast if possible but if needed would give IVF pre and post procedure to minimize risk. I discussed with hospitalist 11/13/18 16:13 Subjective: Feeling much better. Denies sob, n/v. Objective: Vital Signs Temp Pulse Resp BP Pulse Ox 36.8 C 88 22 H 107/72 95 11/13/18 12:00 11/13/18 12:00 11/13/18 12:00 11/13/18 12:00 11/13/18 12:00 Microbiology 11/10/18 13:40 Urine Culture - Final Urine,Clean Catch Laboratory Results 11/12/18 03:32 11/13/18 03:24 11/12/18 11/13/18 11/14/18 05:59 05:59 05:59 Intake Total 1947 932 550 Output Total 1825 2450 Balance 122 -1518 550 PT 31.3 SEC (12.0-15.0) H 11/13/18 03:24 INR 3.23 (0.83-1.16) H 11/13/18 03:24 Physical Exam - Physical Exam General Appearance: alert, no apparent distress EENT: other (mmm) Neck: supple Respiratory: other (not tachypneic) Cardiac/Chest: regular rate, rhythm Skin: warm/dry Extremities: other (no edema) ICD10 Worksheet Patient Problems: Problems Problem Status Onset Hypercalcemia Acute Hypokalemia Acute Renal insufficiency Acute Abdominal pain Acute Diarrhea Acute Hemarthrosis involving knee joint Acute Hematoma Acute Hernia Acute Localized osteoarthritis of right knee Acute Parathyroid adenoma Acute Primary osteoarthritis of left knee Acute Supratherapeutic INR Acute
[2018-11-13] MEDS: POLYETHYLENE GLYCOL 3350 17 GM PKT PO PRN (14:47)
--- NOTE | 2018-11-13 15:27 | HOSPPROG ---
Hospitalist Progress Note Assessment/Plan: * Hypercalcemia -likely overshoot oral replacement post parathyroidectomy -s/p Calcitonin and Zometa -calcium now low - may need to restart oral replacement -will need very close outpatient monitoring for next 4-5 months * ARF due to hypercalcemia -slow improvement * Possible bladder mass with urinary retention -now with figueroa -check CT abd/pelvis once barium passed - anticipate in am * HTN -norvasc added * Afib -warfarin Subjective: No new complaints. Objective: Vital Signs Temp Pulse Resp BP Pulse Ox 36.8 C 88 22 H 107/72 95 11/13/18 12:00 11/13/18 12:00 11/13/18 12:00 11/13/18 12:00 11/13/18 12:00 Microbiology 11/10/18 13:40 Urine Culture - Final Urine,Clean Catch Laboratory Results 11/12/18 03:32 11/13/18 03:24 11/12/18 11/13/18 11/14/18 05:59 05:59 05:59 Intake Total 1947 932 550 Output Total 1825 2450 Balance 122 -1518 550 PT 31.3 SEC (12.0-15.0) H 11/13/18 03:24 INR 3.23 (0.83-1.16) H 11/13/18 03:24 d/w DR. Burns regarding risk of IV contrast - Physical Exam Constitutional: no apparent distress, appears nourished, not in pain Cardiovascular: regular rate and rhythym, no murmur, rub, or gallop Respiratory: no respiratory distress, no rales or rhonchi, clear to auscultation Gastrointestinal: normoactive bowel sounds, soft, non-tender abdomen, no palpable masses Skin: no rashes or abrasions, no fluctuance, no induration Neurologic: AAOx3, sensation intact bilaterally Psychiatric: interacting appropriately, not anxious, not encephalopathic, thought process linear ICD10 Worksheet Patient Problems: Problems Problem Status Onset Parathyroid adenoma Acute Hemarthrosis involving knee joint Acute Supratherapeutic INR Acute Localized osteoarthritis of right knee Acute Primary osteoarthritis of left knee Acute Abdominal pain Acute Hematoma Acute Hernia Acute Diarrhea Acute Hypercalcemia Acute Renal insufficiency Acute Hypokalemia Acute
[2018-11-13] MEDS ORDERED: WARFARIN SODIUM 1 MG TAB PO ONE (16:00)
[2018-11-13] MEDS ORDERED: POTASSIUM CL 20 MEQ TAB PO ONE (16:17)
[2018-11-13] MEDS: FAMOTIDINE 20 MG TAB PO SCH (20:24)
[2018-11-14 04:47] LABS: INR 2.32 (0.83-1.16); PROTIME(PATIENT) 24.3 SEC (12.0-15.0)
[2018-11-14] MEDS: LEVOTHYROXINE 112 MCG TAB PO SCH (06:17)
[2018-11-14] MEDS ORDERED: POTASSIUM CL 10 MEQ TAB PO ONE ×2 (08:25→21:00)
[2018-11-14] MEDS: ROSUVASTATIN CALCIUM 10 MG TAB PO SCH (09:17)
[2018-11-14] MEDS: MULTIVITAMINS 1 EACH TAB PO SCH (09:17)
[2018-11-14] MEDS: VERAPAMIL ER 120 MG TAB PO SCH ×2 (09:19→21:16)
[2018-11-14] MEDS: SENNOSIDES/DOCUSATE SODIUM TAB PO SCH (09:20)
[2018-11-14] MEDS: WARFARIN SODIUM 2 MG TAB PO SCH (16:13)
--- NOTE | 2018-11-14 16:36 | SOAPPROG ---
SOAP Progress Note Assessment/Plan: Assessment: COREY, slow to resolve, creat stable about 1.4 CKD 3 baseline creat about 1 hypercalcemia, resolved Right adnexal mass, growing slowly over past 2 years, now 11.5x6 cm Plan: continue therapies encouraged up and around no HD needs follow lytes vol and renal function 11/14/18 16:33 Subjective: chilly wrapped up in her chair no cp sob nausea or vomiting sleeping fine not fatigued spirits good Objective: Vital Signs Temp Pulse Resp BP Pulse Ox 36.4 C 72 15 127/51 H 96 11/14/18 15:32 11/14/18 15:32 11/14/18 15:32 11/14/18 15:32 11/14/18 15:32 Laboratory Results 11/12/18 03:32 11/14/18 03:22 11/13/18 11/14/18 11/15/18 05:59 05:59 05:59 Intake Total 932 1070 Output Total 2450 1125 1750 Balance -1518 -55 -1750 PT 24.3 SEC (12.0-15.0) H 11/14/18 03:22 INR 2.32 (0.83-1.16) H 11/14/18 03:22 Physical Exam - Physical Exam General Appearance: alert, thin Neck: normal inspection Respiratory: lungs clear, No rhonchi, No wheezing Cardiac/Chest: edema, systolic murmur, No friction rub Abdomen: normal bowel sounds, non-tender Extremities: swelling Neuro/Psych: alert, normal mood/affect, oriented x 3 ICD10 Worksheet Patient Problems: Problems Problem Status Onset Hypercalcemia Acute Hypokalemia Acute Renal insufficiency Acute Abdominal pain Acute Diarrhea Acute Hemarthrosis involving knee joint Acute Hematoma Acute Hernia Acute Localized osteoarthritis of right knee Acute Parathyroid adenoma Acute Primary osteoarthritis of left knee Acute Supratherapeutic INR Acute
--- NOTE | 2018-11-14 17:14 | HOSPPROG ---
Hospitalist Progress Note Assessment/Plan: * Hypercalcemia -likely overshoot oral replacement post parathyroidectomy -s/p Calcitonin and Zometa -calcium now low - may need to restart oral replacement -will need very close outpatient monitoring for next 4-5 months * ARF due to hypercalcemia -slow improvement * Urinary retention -now with figueroa -attempt DC figueroa with voiding trials * Right adnexal mass -very slow growing - slightly bigger than 2016 -outpatient follow-up * HTN -now low * Afib -warfarin Subjective: no new complaints. Objective: Vital Signs Temp Pulse Resp BP Pulse Ox 36.4 C 72 15 127/51 H 96 11/14/18 15:32 11/14/18 15:32 11/14/18 15:32 11/14/18 15:32 11/14/18 15:32 Laboratory Results 11/12/18 03:32 11/14/18 03:22 11/13/18 11/14/18 11/15/18 05:59 05:59 05:59 Intake Total 932 1070 460 Output Total 2450 1125 2550 Balance -1518 -55 -2090 PT 24.3 SEC (12.0-15.0) H 11/14/18 03:22 INR 2.32 (0.83-1.16) H 11/14/18 03:22 AXR viewed, my personal interpretation is - nonspecific bowel has pattern abd CT - adnexal mass, has been present in past - Physical Exam Constitutional: no apparent distress, appears nourished, not in pain Cardiovascular: regular rate and rhythym, no murmur, rub, or gallop Respiratory: no respiratory distress, no rales or rhonchi, clear to auscultation Gastrointestinal: normoactive bowel sounds, soft, non-tender abdomen, no palpable masses Skin: no rashes or abrasions, no fluctuance, no induration Neurologic: AAOx3, sensation intact bilaterally Psychiatric: interacting appropriately, not anxious, not encephalopathic, thought process linear ICD10 Worksheet Patient Problems: Problems Problem Status Onset Parathyroid adenoma Acute Hemarthrosis involving knee joint Acute Supratherapeutic INR Acute Localized osteoarthritis of right knee Acute Primary osteoarthritis of left knee Acute Abdominal pain Acute Hematoma Acute Hernia Acute Diarrhea Acute Hypercalcemia Acute Renal insufficiency Acute Hypokalemia Acute
[2018-11-14] MEDS: FAMOTIDINE 20 MG TAB PO SCH (21:16)
[2018-11-15 04:51] LABS: INR 2.08 (0.83-1.16); PROTIME(PATIENT) 22.4 SEC (12.0-15.0)
[2018-11-15] MEDS: LEVOTHYROXINE 112 MCG TAB PO SCH (06:35)
[2018-11-15] MEDS ORDERED: POTASSIUM CL 10 MEQ TAB PO ONE (08:16)
[2018-11-15] MEDS ORDERED: MAGNESIUM SULF 1 GM/DEXTROSE 100 ML IV ONE (08:58)
[2018-11-15] MEDS: VERAPAMIL ER 120 MG TAB PO SCH (09:04)
[2018-11-15] MEDS: ROSUVASTATIN CALCIUM 10 MG TAB PO SCH (09:04)
[2018-11-15] MEDS: MULTIVITAMINS 1 EACH TAB PO SCH (09:05)
--- NOTE | 2018-11-15 10:23 | SOAPPROG ---
SOAP Progress Note Assessment/Plan: Assessment: COREY, slow to resolve, creat stable about 1.4 CKD 3 baseline creat about 1 hypercalcemia, resolved Right adnexal mass, growing slowly over past 2 years, now 11.5x6 cm Plan: continue therapies encouraged up and around no HD needs follow lytes vol and renal function will need renal follow up at discharge, would like to follow up at our [place] clinic will need weekly labs for 4 weeks at discharge Ca++ supps for about a week Renal signing off 11/14/18 16:33 11/15/18 10:20 Subjective: up to chair spirits good no cp nausea or vomiting minimal fatigue and SOB sleeping well Objective: Vital Signs Temp Pulse Resp BP Pulse Ox 36.9 C 67 15 129/57 H 94 11/15/18 07:39 11/15/18 07:39 11/15/18 07:39 11/15/18 07:39 11/15/18 07:39 Laboratory Results 11/12/18 03:32 11/15/18 03:23 11/14/18 11/15/18 11/16/18 05:59 05:59 05:59 Intake Total 1070 710 Output Total 1125 3550 Balance -55 -2840 PT 22.4 SEC (12.0-15.0) H 11/15/18 03:23 INR 2.08 (0.83-1.16) H 11/15/18 03:23 Physical Exam - Physical Exam General Appearance: alert, thin Neck: normal inspection Respiratory: crackles, No rhonchi, No wheezing Cardiac/Chest: regular rate, rhythm, No friction rub Abdomen: normal bowel sounds, non-tender, soft Neuro/Psych: alert, normal mood/affect, oriented x 3 ICD10 Worksheet Patient Problems: Problems Problem Status Onset Hypercalcemia Acute Hypokalemia Acute Renal insufficiency Acute Abdominal pain Acute Diarrhea Acute Hemarthrosis involving knee joint Acute Hematoma Acute Hernia Acute Localized osteoarthritis of right knee Acute Parathyroid adenoma Acute Primary osteoarthritis of left knee Acute Supratherapeutic INR Acute
[2018-11-15 11:34] VITALS: BP 135/63
--- NOTE | 2018-11-15 12:03 | PDIAF ---
- Diagnosis Diagnosis: hypercalcemia due to over-replacement, s/p Zometa, s/p parathyroidectomy Code Status: Full Code - Medication Management Discharge Medications: electronically signed and located in the Home Medication List. - Orders Services needed: Physical Therapy, Occupational Therapy Isolation Type: None Diet Texture: Regular Texture Diet, Thin Liquids, Meds Whole in Puree Additional Instructions: Resume calcium citrate as previously prescribed, stop calcitriol and additional Vitamin D Weekly calcium checks - call results to Dr. Hayes Replace figueroa catheter if recurrent urinary retention Follow-up with urology regarding urinary retention due to pelvic mass Outpatient MRI of pelvic mass recommended when creatinine improved - Labs/Radiology BMP Date: 11/21/18 (weekly) Other Lab Name, Date and Time: Weekly ionized calcium level - call result to Dr. Hayes - Follow Up Care Current Providers and Referrals: Grayson Ramsay DO [Primary Care Provider] - As per Instructions Patient,NotPresent [Unknown] - As per Instructions Roseline Wong MD [Medical Doctor] - As per Instructions Adalberto Phipps MD [Medical Doctor] - follow up in 2 weeks
--- NOTE | 2018-11-15 12:18 | ASMTLACE ---
JANEE Length of stay for Answers: 7-13 days current admission Acuity / Level of Answers: Yes Care: Did the patient have an inpatient admission? Comorbidities - select Answers: Chronic pulmonary disease all that apply Opioid dependence / Chronic pain Other Notes: AFib; HTN; HLD # of Emergency department Answers: 1-2 visits in the last 6 months Score: 16 Date Signed: 11/15/2018 12:16 PM Electronically Signed By:Cecily Hills
--- NOTE | 2018-11-15 12:26 | ASMTDCNOTE ---
Case Management Discharge Discharge Order Complete? Answers: Yes Patient to Obtain Answers: Other Notes: SNF Medications Transportation Arranged Answers: Other Notes: [facility] Faxed Final Orders Answers: Yes Notes: [facility] Agency/Facility Transfer Answers: Yes Notes: [facility] Report Printed & Faxed to Receiving Agency Discharge Comments Notes: Pt being medically discharged to [facility] in [place]. Final orders were faxed to [facility]. Janel at [facility] set up transport. RN received report number. Date Signed: 11/15/2018 12:25 PM Electronically Signed By:Cecily Hills
--- NOTE | 2018-11-15 12:27 | ASDISCHSUM ---
Discharge Information Plan Status:SNF Medically Cleared to Leave:11/15/2018 Discharge Date:11/15/2018 CM D/C Disposition:[facility] Facility ADT D/C Disposition:Halfway Facility Projected Discharge Date:11/11/2018 11:00 AM Transportation at D/C:Wheelchair Van Discharge Delay Reason: Follow-Up Date:11/11/2018 11:00 AM Discharge Slot: Final Diagnosis: Placement Information Referral Type:*Assisted/SNF Referral ID:[id number] Provider Name:Clarisse vargas [place] Address 1:[address] Address 2: City:[place] Selection Factors: State:[place] Referral Type:*Home Health Care Services Referral ID:[id number] Provider Name: Address 1: Phone Number: Address 2: Fax Number: City: Selection Factors: State: Patient Contact Information Contact Name:AYLIN Relationship:Cousin Address:[address] City:[place] Alternate Phone: State/Zip Code:[place] [address] Email: Financial Information Financial Class:Medicare Advantage Plans Primary Plan Desc:[email or web address] [facility] ADVANTAGE [employer] Primary Plan Number:[id number] Secondary Plan Desc: Secondary Plan Number: Assessment Information [facility] CM Progress Note CM Note CM Note Notes: Pt is a 78 yo F presents with hypercalcemia and renal insufficiency. Pt lives home alone in [place], her daughter lives in [place]. PT/OT ordered, Jericaals pending. Endocrinology consulted. Plan: TBD Date Signed: 11/09/2018 01:50 PM Electronically Signed By:MEAGHAN Martin [facility] CM Progress Note CM Note CM Note Notes: Pts case discussed in tx rounds. CM met w/ pt and pts POAs for dispo planning. Therapies are recommending SNF. Referrals sent to [facility] ([facility] and [facility] in [place]. Referrals sent. CM to follow. Plan: SNF Date Signed: 11/11/2018 11:35 AM Electronically Signed By:MEAGHAN Campuzano [facility] Progress Note CM Note CM Note Notes: [facility] do not have any beds available. [facility] is able to accept. Both of pts MDPOA's are in agreement for pt to go to SNF at [facility]. [facility] has started getting auth. CM to follow. Plan: [facility] SNF Date Signed: 11/11/2018 01:31 PM Electronically Signed By:MEAGHAN Campuzano [facility] Length of stay for Answers: 7-13 days current admission Acuity / Level of Answers: Yes Care: Did the patient have an inpatient admission? Comorbidities - select Answers: Chronic pulmonary disease all that apply Opioid dependence / Chronic pain Other Notes: AFib; HTN; HLD # of Emergency department Answers: 1-2 visits in the last 6 months Score: 16 Date Signed: 11/15/2018 12:16 PM Electronically Signed By:Cecily Hills [facility] CM Progress Note CM Note CM Note Notes: 11/13/2018 Case Management Note Discussed during rounds. Gloria LOPEZ present. Per previous case management report, pt is open with [facility]. Phone call from Betsy with [facility]. Authorization has been obtained from [employer]. Met w/pt and [facility] to discuss discharge needs. Pt is interested in Palliative Care. Notified MD and [facility] palliative team members. Pt has quarterly visits from [facility] House Call program from RN. Pt lives independently in her condo with help from Gloria as needed. Case Management d/c poc: [facility] SN[facility] rehab when medically ready. Case Management to follow. Date Signed: 11/13/2018 01:58 PM Electronically Signed By:Shilpa Vasques RN Case Management Discharge Plan Note Case Management Discharge Discharge Order Complete? Answers: Yes Patient to Obtain Answers: Other Notes: SNF Medications Transportation Arranged Answers: Other Notes: [facility] Faxed Final Orders Answers: Yes Notes: [facility] Agency/Facility Transfer Answers: Yes Notes: [facility] Report Printed & Faxed to Receiving Agency Discharge Comments Notes: Pt being medically discharged to [facility] in [place]. Final orders were faxed to [facility]. Janel at [facility] set up transport. STEPHANIE received report number. Date Signed: 11/15/2018 12:25 PM Electronically Signed By:Cecily Hills Intervention Information Intervention Type:*Incorrect Registration Date of Service:11/09/2018 09:09 AM Patient Type:Observation Staff Member:STEPHANIE Valadez, Chetna Hours: Discipline: Severity: Comment:
[2018-11-15] MEDS ORDERED: WARFARIN SODIUM 3 MG TAB PO SCH (16:00)
--- NOTE | 2018-11-15 16:14 | GDS ---
[f rep st] DISCHARGE SUMMARY DISCHARGE DIAGNOSES: 1. Hypercalcemia due to excessive calcium replacement. 2. Recent parathyroidectomy. 3. Acute renal failure due to hypercalcemia. 4. Urinary retention. 5. Large right adnexal mass. 6. Hypertension. 7. Atrial fibrillation. HISTORY: The patient is a 78-year-old female who recently had a parathyroidectomy. She had one of h er residual parathyroid glands implanted into her arm. In the postoperative period she developed sev ere hypocalcemia with tetany. She was started on calcitriol calcium supplements and high-dose vitami n D. she presented to our hospital for symptomatic hypercalcemia with calcium of 16.5 on presentatio n. She received calcitonin and Zometa. Now her calcium has overshot low again, so I will be resumin g some oral calcium replacement. The Zometa will be in her system for the next 90 days. I think she needs extraordinary close monitoring of her calcium levels through that period. I am recommending w daltony calcium checks with results being called to Dr. Wong. Her creatinine improved down to 1.4. It is not yet back to baseline, but we are hopeful it will even tually return there. She should follow up with Nephrology, and they are recommending weekly creatini ne checks. The patient was found to have urinary retention, had a Chung catheter placed. She had a CT scan of t he abdomen and pelvis which revealed a large right adnexal mass. This was present in 2016, and it is only slightly bigger at this time. It now however may be causing some urinary retention. Recommend ation is for followup pelvic MRI with contrast that can be done as an outpatient once her acute renal failure is completely resolved. We discontinued the Chung, and she was able to successfully void wi th only mildly elevated residuals. She will follow up with Urology as an outpatient. DISCHARGE MEDICATIONS: Please see computerized record for full detailed list. There were no new med ications given at time of hospital discharge. DISCHARGE INSTRUCTIONS: 1. Discontinue Lasix, potassium, vitamin D, calcitriol. 2. Weekly calcium checks and creatinine checks with results to be called to Dr. Wong of Endocr inology and Dr. Phipps of Nephrology. 3. Recommend replacing Chung catheter if she has recurrence of urinary retention. 4. Follow up with Urology regarding urinary retention due to pelvic mass. 5. Outpatient MRI of the pelvic mass is recommended when the creatinine is improved. Greater than 30 minutes' time was spent arranging this discharge. Patient was seen and examined by chu rodriguez on the day of discharge. /[id number]/MODL
== END 2018-11-15 13:50 | DRG 641 ==
LOC: EDUNIT# → OBSVTOIN 20:25 → F2W 22:15
PROVIDERS: ADMIT Internal Medicine; ATTEND Internal Medicine
DX: E83.52 Hypercalcemia (principal); N17.8 Other acute kidney failure; E89.2 Postprocedural hypoparathyroidism; E89.0 Postprocedural hypothyroidism; E86.9 Volume depletion, unspecified; R33.9 Retention of urine, unspecified; I10 Essential (primary) hypertension; I48.91 Unspecified atrial fibrillation; D39.8 Neoplasm of uncertain behavior of other specified female genital organs; M81.0 Age-related osteoporosis without current pathological fracture; J44.9 Chronic obstructive pulmonary disease, unspecified; Z85.820 Personal history of malignant melanoma of skin; Z96.611 Presence of right artificial shoulder joint; Z96.612 Presence of left artificial shoulder joint; Z96.653 Presence of artificial knee joint, bilateral; Z87.891 Personal history of nicotine dependence
CPT/HCPCS: 82397-90; 82435-PO; 82565-PO; 82947-PO; 84132-PO; 84295-PO; 84520-PO; 85014-ER; 92611-GN; 96365; 97116-GP; 97161-GP; 97166-GO; 97530-GP; 97535-GO; J0630; J3475; J3480; J3489

== ENCOUNTER → 2018-12-30 | Outpatient (CLI) | payer OTHER | LOC: FIMAGING 13:44 ==